=== PATIENT | male | born 1935 | race Caucasian/White ===

== ENCOUNTER 2016-10-24 15:40 | Inpatient (IN) ==
[2016-10-24] MEDS ORDERED: Ondansetron 4 MG/2 ML VIAL IVP ONE (16:00)
[2016-10-24] MEDS ORDERED: 0.9 % Sodium Chloride 1,000 ML IVC ONE (16:00)
[2016-10-24] MEDS ORDERED: *HR* Morphine 2 MG/ML SYRINGE IVP ONE (16:00)
[2016-10-24] MEDS ORDERED: Piperacillin/Tazobactam 4.5 GM in D5% in Water (Mini-Bag+) 100 ML IVPB ONE (16:04)
[2016-10-24 17:03] LABS: Basophils % 0.1 %; Eosinophils % 0.1 %; Hematocrit 35.2 % (37.5-50.1); Hemoglobin 11.8 g/dL (12.9-16.9); Immature Granulocytes % 0.8 % (0-4); Lymphocytes # 1.2 K/mcL (0.6-4.6); Lymphocytes % 7.9 %; Mean Corpuscular HGB Conc 33.5 g/dL (31.6-35.5); Mean Corpuscular Hemoglobin 31.8 pg (28.0-33.3); Mean Corpuscular Volume 94.9 fL (83.0-100.0); Mean Platelet Volume 9.1 fL (9.4-12.4); Monocytes # 0.6 K/mcL (0.0-1.3); Monocytes % 4.3 %; Neutrophils # 12.6 K/mcL (1.6-8.9); Platelet Count 181 K/mcL (140-400); Red Blood Count 3.71 M/mcL (4.19-5.50); Red Cell Distribution Width 13.4 % (11.5-14.5); Segmented Neutrophils % 86.8 %
[2016-10-24 17:11] LABS: INR 1.6; Prothrombin Time 17.4 Seconds (9.4-12.1)
[2016-10-24 17:19] LABS: Potassium 3.9 mEq/L (3.5-4.5)
[2016-10-24 17:20] LABS: Albumin 2.9 g/dL (3.5-5.0); Albumin/Globulin Ratio 0.9 (1.1-2.2); Bilirubin,Direct 0.7 mg/dL (0.0-0.5); Bilirubin,Indirect 0.3 mg/dL (0.0-1.2); Calcium 9.3 mg/dL (8.6-10.8); Globulin 3.4 g/dL (2.4-3.5); Total Protein 6.3 g/dL (6.0-8.3)
[2016-10-24 17:33] LABS: Bilirubin,Urine Large (Negative); Blood,Urine Negative (Negative); Clarity,Urine Cloudy (Clear); Color,Urine Dark Yellow (Yellow); Glucose,Urine (UA) 100 mg/dL (Normal); Ketones,Urine Trace mg/dL (Negative); Leukocyte Esterase,Urine Small (Negative); Nitrite,Urine Negative (Negative); PH,Urine 5.5 pH Units (5.0-8.0); Protein,Urine 100 mg/dL (Neg-Trace); Specific Gravity,Urine 1.017 (1.010-1.025); Urobilinogen,Urine Normal (Normal)
[2016-10-24 17:35] LABS: Squamous Epithelial Cell,Urine Many per lpf (None-Few)
[2016-10-24 17:51] LABS: Hyaline Casts,Urine Few per lpf (None-Few); Transitional Epi Cells,Urine Few per hpf (None-Few)
[2016-10-24 17:52] LABS: Bacteria,Urine Moderate per hpf (None-Few)
[2016-10-24] MEDS ORDERED: Ondansetron 4 MG/2 ML VIAL IVP PRN (20:08)
[2016-10-24] MEDS ORDERED: *HR* Dextrose 50 % in Water (Syg) 50 ML SYRINGE IVP PRN (20:14)
[2016-10-24] MEDS ORDERED: D5% in Water 1,000 ML IVC PRN (20:14)
[2016-10-24] MEDS ORDERED: Dextrose Gel 15 GM PO PRN ×2 (20:14)
[2016-10-24] MEDS: 0.9 % Sodium Chloride 1,000 ML IVC SCH (21:44)
[2016-10-24] MEDS: *HR* Morphine 2 MG/ML SYRINGE IVP PRN (23:15)
[2016-10-24] MEDS: cefOXitin 2,000 MG in D5% in Water (Mini-Bag+) 100 ML IVPB SCH (23:17)
--- NOTE | 2016-10-25 00:02 | Emergency Department Note ---
Disposition Clinical Impression: Acute cholecystitis Disposition: Admitted As Inpatient Condition: Good General Adult HPI - General Chief complaint: ED Abdominal Pain Stated complaint: sent from cancer or for admission Time Seen by Provider: 10/24/16 15:48 Source: patient, family Limitations: no limitations Nursing Notes Reviewed: Yes Vital Signs Reviewed: Yes - History of Present Illness HPI Narrative: 81-year-old male presents with concern for right upper quadrant abdominal pain. He was actually seen here over the weekend had a CT scan that showed questionable acute cholecystitis. He was sent home on antibiotics after surgical consultation and discussion. He had appropriate follow-up and ultimately returned with worsening pain, anorexia, upper quadrant abdominal pain. No fever or chills. Vital signs stable on arrival. He is currently on immunotherapy for lung cancer. Pain Scale: 5 - Related Data Home Medications Medication Instructions Recorded Confirmed Aspirin 81 mg PO DAILY 03/13/15 10/24/16 Docusate [Colace] 100 mg PO DAILY PRN 03/13/15 10/24/16 Lidocaine/Prilocaine CREAM [Emla] 1 appl TP PRN PRN 03/13/15 10/24/16 Cyanocobalamin (Vitamin B-12) 2,000 mcg PO DAILY 06/27/16 10/24/16 [Vitamin B12] Insulin ASPART [NovoLOG] 1 - 3 unit SQ TIDWM 10/15/16 10/24/16 Metformin [Glucophage] 500 mg PO BIDWM 10/24/16 10/24/16 PredniSONE 20 mg PO Q48H 10/24/16 10/24/16 Previous Rx's Medication Instructions Recorded Levothyroxine [Synthroid] 100 mcg PO QAM #30 tab 09/24/15 LORazepam [Ativan] 0.5 tab PO Q6H PRN #90 tablet 09/17/16 Ciprofloxacin HCl [Cipro] 500 mg PO BID #20 tablet 10/22/16 MetroNIDAZOLE [Flagyl] 500 mg PO QID #40 tablet 10/22/16 Allergies Allergy/AdvReac Type Severity Reaction Status Date / Time propoxyphene [From Darvon] Allergy See Verified 10/15/16 09:12 Comments All systems ED: reviewed and negative except as stated. Past Medical History - Past Medical History Medical history: Reports: cancer, diabetes, malignancy, thyroid disease Surgical history: Reports: colectomy, orthopedic, other (left shoulder arthroscopy) Psychiatric history: Reports: no psych history - Social History Smoking Status: Current some day smoker Smokeless Tobacco Status: No Alcohol use: Reports: none Drug use: Reports: none Physical Exam There is tenderness in the right upper quadrant with positive Cardenas sign. - General Limitations: no limitations General appearance: alert, in no apparent distress - Head Head exam: atraumatic - Eye Eye exam: Present: normal appearance - ENT ENT exam: normal exam, normal oropharynx - Neck Neck exam: Present: normal inspection, full ROM - Chest Chest inspection: Present: normal inspection - Respiratory Respiratory exam: Present: normal lung sounds bilaterally - Cardiovascular Cardiovascular exam: Present: regular rate, normal rhythm - Male exam: Present: normal inspection - Extremities Exam Extremities exam: Present: normal inspection, full ROM - Expanded Lower Extremity Exam Hip/Pelvis exam: Present: normal inspection, full ROM Upper leg exam: Present: normal inspection, full ROM Knee exam: Present: normal inspection, full ROM Lower leg exam: Present: normal inspection, full ROM Ankle exam: Present: normal inspection, full ROM Foot/toe exam: Present: normal inspection, full ROM Neurovascular/Tendon exam: Present: normal capillary refill, pulse deficit Gait: observed and normal - Back Exam Back exam: Present: normal inspection, full ROM - Neurological Exam Neurological exam: Present: alert, oriented X3, CN II-XII intact - Psychiatric Psychiatric exam: Present: normal affect, normal mood - Skin Skin exam: Present: warm, dry Course Vital Signs Temperature 97.7 F 10/24/16 15:41 Pulse Rate 94 10/24/16 15:41 Respiratory Rate 16 10/24/16 15:41 Blood Pressure 106/62 10/24/16 15:41 O2 Sat by Pulse Oximetry 98 10/24/16 15:41 Temperature 98.2 F 10/24/16 23:52 Pulse Rate 80 10/24/16 23:52 Respiratory Rate 17 10/24/16 23:52 Blood Pressure 108/66 10/24/16 23:52 O2 Sat by Pulse Oximetry 95 10/24/16 23:52 Oxygen Delivery Oxygen Delivery Room Air Medical Decision Making - MDM Narrative Medical decision making narrative: 81-year-old male with acute cholecystitis, Zosyn initiated, discussed case with on-call surgeon. Confirmed with ultrasound. We will keep nothing by mouth, admit to general surgery. accepting surgeon. Admitted in stable condition. - Medical Records Medical records reviewed: Yes I reviewed the patient's medical records. - Lab Data Lab results reviewed: Yes I reviewed the patient's lab results. Result diagrams: 10/24/16 16:56 10/24/16 16:56 Lab Results 10/24/16 10/24/16 10/24/16 Range/Units 16:56 16:56 16:56 WBC 14.6 H (4.3-11.1) K/mcL RBC 3.71 L (4.19-5.50) M/mcL Hgb 11.8 L (12.9-16.9) g/dL Hct 35.2 L (37.5-50.1) % MCV 94.9 (83.0-100.0) fL MCH 31.8 (28.0-33.3) pg MCHC 33.5 (31.6-35.5) g/dL RDW 13.4 (11.5-14.5) % Plt Count 181 (140-400) K/mcL MPV 9.1 L (9.4-12.4) fL Immature Gran % 0.8 (0-4) % Seg Neutrophils % 86.8 % Lymphocytes % 7.9 % Monocytes % 4.3 % Eosinophils % 0.1 % Basophils % 0.1 % Neutrophils # 12.6 H (1.6-8.9) K/mcL Lymphocytes # 1.2 (0.6-4.6) K/mcL Monocytes # 0.6 (0.0-1.3) K/mcL Eosinophils # 0.0 (0.0-0.6) K/mcL Basophils # 0.0 (0.0-0.2) K/mcL PT 17.4 H (9.4-12.1) Seconds INR 1.6 Sodium 131 L (136-145) mEq/L Potassium 3.9 (3.5-4.5) mEq/L Chloride 98 (98-109) mEq/L Carbon Dioxide 20 (19-29) mEq/L BUN 28 H D (8-26) mg/dL Creatinine 2.28 H D (0.72-1.25) mg/dL Est GFR ( Amer) 34 L (> 60) Est GFR (Non-Af Amer) 28 L (> 60) BUN/Creatinine Ratio 12 (6-26) Glucose 152 H (70-99) mg/dL Calculated Osmolality 280 (280-300) Lactic Acid (0.5-2.2) mmol/L Calcium 9.3 (8.6-10.8) mg/dL Total Bilirubin 1.0 (0.2-1.2) mg/dL Direct Bilirubin 0.7 H (0.0-0.5) mg/dL Indirect Bilirubin 0.3 (0.0-1.2) mg/dL AST 23 (5-34) Units/L ALT 23 (0-55) Units/L Alkaline Phosphatase 101 (38-126) Units/L Troponin I (0-0.03) ng/mL Serum Total Protein 6.3 (6.0-8.3) g/dL Albumin 2.9 L (3.5-5.0) g/dL Globulin 3.4 (2.4-3.5) g/dL Albumin/Globulin Ratio 0.9 L (1.1-2.2) Amylase 23 L (25-125) Units/L Lipase 5 L (8-78) Units/L Urine Color (Yellow) Urine Clarity (Clear) Urine pH (5.0-8.0) pH Units Ur Specific Ferdinand (1.010-1.025) Urine Protein (Neg-Trace) mg/dL Urine Glucose (UA) (Normal) mg/dL Urine Ketones (Negative) mg/dL Urine Blood (Negative) Urine Nitrite (Negative) Urine Bilirubin (Negative) Urine Urobilinogen (Normal) mg/dL Ur Leukocyte Esterase (Negative) Urine Microscopic RBC Urine Microscopic WBC (0-3) per hpf Ur Squamous Epith Cells (None-Few) per lpf Ur Transition Epith Cell (None-Few) per hpf Urine Bacteria (None-Few) per hpf Hyaline Casts (None-Few) per lpf Urine Yeast Ur Culture Indicated? (NO) 10/24/16 10/24/16 10/24/16 Range/Units 16:56 16:56 17:25 WBC (4.3-11.1) K/mcL RBC (4.19-5.50) M/mcL Hgb (12.9-16.9) g/dL Hct (37.5-50.1) % MCV (83.0-100.0) fL MCH (28.0-33.3) pg MCHC (31.6-35.5) g/dL RDW (11.5-14.5) % Plt Count (140-400) K/mcL MPV (9.4-12.4) fL Immature Gran % (0-4) % Seg Neutrophils % % Lymphocytes % % Monocytes % % Eosinophils % % Basophils % % Neutrophils # (1.6-8.9) K/mcL Lymphocytes # (0.6-4.6) K/mcL Monocytes # (0.0-1.3) K/mcL Eosinophils # (0.0-0.6) K/mcL Basophils # (0.0-0.2) K/mcL PT (9.4-12.1) Seconds INR Sodium (136-145) mEq/L Potassium (3.5-4.5) mEq/L Chloride (98-109) mEq/L Carbon Dioxide (19-29) mEq/L BUN (8-26) mg/dL Creatinine (0.72-1.25) mg/dL Est GFR ( Amer) (> 60) Est GFR (Non-Af Amer) (> 60) BUN/Creatinine Ratio (6-26) Glucose (70-99) mg/dL Calculated Osmolality (280-300) Lactic Acid 1.1 (0.5-2.2) mmol/L Calcium (8.6-10.8) mg/dL Total Bilirubin (0.2-1.2) mg/dL Direct Bilirubin (0.0-0.5) mg/dL Indirect Bilirubin (0.0-1.2) mg/dL AST (5-34) Units/L ALT (0-55) Units/L Alkaline Phosphatase (38-126) Units/L Troponin I 0.01 (0-0.03) ng/mL Serum Total Protein (6.0-8.3) g/dL Albumin (3.5-5.0) g/dL Globulin (2.4-3.5) g/dL Albumin/Globulin Ratio (1.1-2.2) Amylase (25-125) Units/L Lipase (8-78) Units/L Urine Color Dark Yellow (Yellow) Urine Clarity Cloudy A (Clear) Urine pH 5.5 (5.0-8.0) pH Units Ur Specific Ferdinand 1.017 (1.010-1.025) Urine Protein 100 H (Neg-Trace) mg/dL Urine Glucose (UA) 100 H (Normal) mg/dL Urine Ketones Trace H (Negative) mg/dL Urine Blood Negative (Negative) Urine Nitrite Negative (Negative) Urine Bilirubin Large H (Negative) Urine Urobilinogen Normal (Normal) mg/dL Ur Leukocyte Esterase Small H (Negative) Urine Microscopic RBC Test Not Performed Urine Microscopic WBC 5-15 H (0-3) per hpf Ur Squamous Epith Cells Many H (None-Few) per lpf Ur Transition Epith Cell Few (None-Few) per hpf Urine Bacteria Moderate H (None-Few) per hpf Hyaline Casts Few (None-Few) per lpf Urine Yeast Test Not Performed Ur Culture Indicated? YES A (NO)
[2016-10-25] MEDS: Insulin LISPRO 300 UNITS/3 ML VIAL SQ SCH ×4 (00:06→17:24)
[2016-10-25 04:03] LABS: Basophils % 0.1 %; Eosinophils % 0.3 %; Hematocrit 30.1 % (37.5-50.1); Immature Granulocytes % 0.5 % (0-4); Lymphocytes # 0.7 K/mcL (0.6-4.6); Lymphocytes % 7.3 %; Mean Corpuscular HGB Conc 33.9 g/dL (31.6-35.5); Mean Corpuscular Hemoglobin 32.5 pg (28.0-33.3); Mean Corpuscular Volume 95.9 fL (83.0-100.0); Mean Platelet Volume 9.4 fL (9.4-12.4); Monocytes # 0.6 K/mcL (0.0-1.3); Monocytes % 6.6 %; Neutrophils # 8.3 K/mcL (1.6-8.9); Platelet Count 169 K/mcL (140-400); Red Blood Count 3.14 M/mcL (4.19-5.50); Red Cell Distribution Width 13.6 % (11.5-14.5); Segmented Neutrophils % 85.2 %
[2016-10-25 04:07] LABS: INR 1.3; Prothrombin Time 13.7 Seconds (9.4-12.1)
[2016-10-25 04:11] LABS: Hemoglobin 10.2 g/dL (12.9-16.9)
[2016-10-25 04:17] LABS: Calcium 8.7 mg/dL (8.6-10.8); Potassium 3.5 mEq/L (3.5-4.5)
[2016-10-25] MEDS: *HR* Morphine 2 MG/ML SYRINGE IVP PRN ×4 (07:18→20:43)
[2016-10-25] MEDS: Pantoprazole 40 MG VIAL IVP SCH (07:18)
[2016-10-25] MEDS ORDERED: Naloxone 0.4 MG/ML INJ IVP PRN (09:51)
[2016-10-25 09:59] LABS: Albumin/Globulin Ratio 0.7 (1.1-2.2); Bilirubin,Direct 0.5 mg/dL (0.0-0.5); Bilirubin,Indirect 0.3 mg/dL (0.0-1.2); Bilirubin,Total 0.8 mg/dL (0.2-1.2); Globulin 3.1 g/dL (2.4-3.5); Total Protein 5.4 g/dL (6.0-8.3)
[2016-10-25 10:00] LABS: Albumin 2.3 g/dL (3.5-5.0)
[2016-10-25] MEDS ORDERED: 0.9 % Sodium Chloride 500 ML IVC ONE ×2 (10:18→14:31)
[2016-10-25] MEDS: 0.9 % Sodium Chloride 1,000 ML IVC SCH ×2 (10:58→23:48)
[2016-10-25] MEDS: cefOXitin 2,000 MG in D5% in Water (Mini-Bag+) 100 ML IVPB SCH ×2 (11:01→23:49)
[2016-10-25] MEDS ORDERED: *HR* LORazepam 0.5 MG TABLET PO PRN (14:15)
--- NOTE | 2016-10-25 14:21 | General Surg History&Physical ---
Date of Encounter: 10/25/16 Time of Encounter: 11:55 Assessment and Plan (1) CKD (chronic kidney disease) stage 3, GFR 30-59 ml/min Current Visit: No Status: Chronic The assessment and plan as outlined above was discussed with the patient and/or family members who expressed understanding and agreement. All questions were answered. pt has RAYRAY superimposed on his CKD due to dehydration, continue IVF, monitor UOP (2) Squamous cell carcinoma of lung, stage IV Current Visit: No Status: Chronic The assessment and plan as outlined above was discussed with the patient and/or family members who expressed understanding and agreement. All questions were answered. consulted oncology and discussed plan of care wean off steroids plan percut CCT and plan for cholecystectomy in 6-8 weeks if able Qualifiers: Laterality: left Qualified Code(s): C34.92 - Malignant neoplasm of unspecified part of left bronchus or lung (3) Anemia due to antineoplastic chemotherapy Current Visit: No Status: Chronic The assessment and plan as outlined above was discussed with the patient and/or family members who expressed understanding and agreement. All questions were answered. moniitor (4) Acute cholecystitis Current Visit: Yes Status: Acute The assessment and plan as outlined above was discussed with the patient and/or family members who expressed understanding and agreement. All questions were answered. discussed with patient and family will plan percutaneous cholecystostomy tube, continue Abx will wean off steroids in coming weeks will plan interval cholecystectomy in future (5) COPD (chronic obstructive pulmonary disease) Current Visit: No Status: Chronic The assessment and plan as outlined above was discussed with the patient and/or family members who expressed understanding and agreement. All questions were answered. Qualifiers: COPD type: emphysema Emphysema type: panlobular Qualified Code(s): J43.1 - Panlobular emphysema (6) Diabetes mellitus Current Visit: No Status: Chronic The assessment and plan as outlined above was discussed with the patient and/or family members who expressed understanding and agreement. All questions were answered. on clear diet currently MBS checks and SSI currently MBS slightly elevated at 160 and 188, will chagne to medium dose correction schedule Qualifiers: Diabetes mellitus type: type 2 Diabetes mellitus complication status: with kidney complications Diabetes mellitus complication detail: with chronic kidney disease Diabetes mellitus buttermaker insulin use: without buttermaker use Chronic kidney disease stage: stage 3 (moderate) Qualified Code(s): E11.22 - Type 2 diabetes mellitus with diabetic chronic kidney disease; N18.3 - Chronic kidney disease, stage 3 (moderate) (7) Hypothyroidism Current Visit: No Status: Chronic The assessment and plan as outlined above was discussed with the patient and/or family members who expressed understanding and agreement. All questions were answered. continue home po synthroid Qualifiers: Hypothyroidism type: unspecified Qualified Code(s): E03.9 - Hypothyroidism , unspecified History of Present Illness Chief complaint: RUQ abdominal pain HPI: Mr. Rodriguez is a 81 year old male who is being treated for metastatic left lung Squamous cell lung cancer. Patient was admitted in June with pancreatitis which was thought to caused by possibly his nivolumab or idiopathic, pt did have cholelithiasis but was felt to be a poor operative candidate. Pancreatitis resolved and Nivolumab was continued with q48hr prednisone since then. He comes in last night complaining of sharp RUQ pain without radiation that began this past Thursday (~5days ago). The day it started he had nausea and emesis. Denies diarrhea. He has stopped taking all his medication and not eating since essentially thursday. He is still having RUQ pain but no further nausea or emesis and the pain isnt as intense as it was. Past Med Surg Social Fam HX - Past Medical History Source: patient Medical history: cancer (squamous cell lung cancer, remote 20 yr ago history colon cancer), diabetes, malignancy, thyroid disease, other (history pancreatitis) Psychiatric history: no psych history - Past Surgical History Surgical History: colectomy (20 yrs ago), orthopedic, other (left shoulder arthroscopy) - Social History Smoking Status: Current some day smoker Smokeless Tobacco Status: No Alcohol use: none Drug use: none - Family History Father Family Member Ethnicity: Non- Living Status: Hx Family Cancer: Yes (unspecified) Mother Family Member Ethnicity: Non- Living Status: Hx Family Cancer: Yes (unspecified) Brother Family Member Ethnicity: Non- Living Status: Still Living Medications and Allergies Aspirin 81 mg PO DAILY 03/13/15 [History] Docusate [Colace] 100 mg PO DAILY PRN 03/13/15 [History] Lidocaine/Prilocaine CREAM [Emla] 1 appl TP PRN PRN 03/13/15 [History] Levothyroxine [Synthroid] 100 mcg PO QAM #30 tab 02/29/16 [Rx] Cyanocobalamin (Vitamin B-12) [Vitamin B12] 2,000 mcg PO DAILY 06/27/16 [History ] LORazepam [Ativan] 0.5 tab PO Q6H PRN #90 tablet 09/17/16 [Rx] Insulin ASPART [NovoLOG] 1 - 3 unit SQ TIDWM 10/15/16 [History] Ciprofloxacin HCl [Cipro] 500 mg PO BID #20 tablet 10/22/16 [Rx] MetroNIDAZOLE [Flagyl] 500 mg PO QID #40 tablet 10/22/16 [Rx] Metformin [Glucophage] 500 mg PO BIDWM 10/24/16 [History] PredniSONE 20 mg PO Q48H 10/24/16 [History] Allergies propoxyphene [From Darvon] Allergy (Verified 10/15/16 09:12) See Comments Review of Systems All systems PM: reviewed and no additional remarkable complaints except as stated All systems PM: A 10-system review of systems was performed and is negative for pertinent findings except as documented above in the HPI. General Surgery Exam Initial Vital Signs Temp Pulse Resp BP Pulse Ox 97.7 F 94 16 106/62 98 10/24/16 15:41 10/24/16 15:41 10/24/16 15:41 10/24/16 15:41 10/24/16 15:41 - General physical appearance well developed, well nourished, no distress - Eyes PERRL, normal ocular movement. negative: icteric - ENT normal mucosa - Neck trachea midline - Respiratory normal respiratory effort, clear to auscultation - Cardiovascular Cardiovascular exam: Present: RRR - Abdomen Abdomen general surgery: Present: bowel sounds present, soft, tender, surgical scars (lower midline). Absent: tympanic, guarding, rebound Abdominal Tenderness: Present: RUQ - Integumentary Integumentary general surgery: Present: warm and dry, no abnormal pigmentation. Absent: diaphoresis - Neurologic Present: CN 2-12 grossly intact - Musculoskeletal Present: normal posture - Psychiatric Psychiatric general surgery: Present: A&Ox3, speech is normal Results - Labs 10/25/16 03:25 10/25/16 03:25 Short CBC 10/25/16 10/24/16 Range/Units 03:25 16:56 WBC 9.7 14.6 H (4.3-11.1) K/mcL Hgb 10.2 L D 11.8 L (12.9-16.9) g/dL Hct 30.1 L 35.2 L (37.5-50.1) % Plt Count 169 181 (140-400) K/mcL Neutrophils # 8.3 12.6 H (1.6-8.9) K/mcL BMP 10/25/16 10/24/16 Range/Units 03:25 16:56 Sodium 136 131 L (136-145) mEq/L Potassium 3.5 3.9 (3.5-4.5) mEq/L Chloride 103 98 (98-109) mEq/L Carbon Dioxide 21 20 (19-29) mEq/L BUN 25 28 H D (8-26) mg/dL Creatinine 2.36 H 2.28 H D (0.72-1.25) mg/dL Glucose 96 152 H (70-99) mg/dL Calcium 8.7 9.3 (8.6-10.8) mg/dL Cardiac Enzymes 10/24/16 Range/Units 16:56 Troponin I 0.01 (0-0.03) ng/mL Liver Function 10/25/16 10/24/16 Range/Units 09:25 16:56 Total Bilirubin 0.8 1.0 (0.2-1.2) mg/dL Direct Bilirubin 0.5 0.7 H (0.0-0.5) mg/dL AST 28 23 (5-34) Units/L ALT 22 23 (0-55) Units/L Alkaline Phosphatase 159 H 101 (38-126) Units/L Albumin 2.3 L D 2.9 L (3.5-5.0) g/dL Urine 10/24/16 Range/Units 17:25 Urine Color Dark Yellow (Yellow) Urine Clarity Cloudy A (Clear) Urine pH 5.5 (5.0-8.0) pH Units Ur Specific [place] 1.017 (1.010-1.025) Urine Protein 100 H (Neg-Trace) mg/dL Urine Glucose (UA) 100 H (Normal) mg/dL Vital Signs Temp Pulse Resp BP Pulse Ox 10/25/16 11:35 97.8 F 77 18 114/66 97 10/25/16 07:24 96 10/25/16 07:08 98.6 F 76 18 134/56 96 10/25/16 04:24 98.4 F 82 17 119/66 94 10/24/16 23:52 98.2 F 80 17 108/66 95 10/24/16 19:33 98.2 F 84 19 119/65 97 10/24/16 18:40 16 111/65 10/24/16 18:32 95 18 111/65 96 10/24/16 15:41 97.7 F 94 16 106/62 98 Intake and Output 10/24/16 10/25/16 10/25/16 23:59 07:59 15:59 Intake Total 1200 / 1200 417 / 417 683 / 683 Output Total 325 / 325 300 / 300 150 / 150 Balance 875 / 875 117 / 117 533 / 533 Intake: IV Fluids 1200 / 1200 417 / 417 683 / 683 0.9 % Sodium Chloride 1, 1000 / 1000 417 / 417 583 / 583 000 ML @ 80 mls/hr IVC . [id number] DANIELE Rx#: [id number] Mefoxin 2,000 MG In 100 / 100 100 / 100 Dextrose 5% (Minibag+) 100 ML 100 ML @ 200 mls/ hr IVPB Q12H DANIELE Rx#: [id number] Zosyn 4.5 GM In Dextrose 100 / 100 5% (Minibag+) 100 ML 100 ML @ 100 mls/hr IVPB ONCE ONE Rx#:[id number] Oral 0 / 0 0 / 0 Output: Urine 325 / 325 300 / 300 150 / 150 Other: Meal NPO Weight 65.8 kg 67.8 kg Blood Glucose* 188 102 160 Patient Weight 10/25/16 23:59 Weight 67.8 kg - Imaging US - abdomen: report reviewed
[2016-10-25] MEDS: Cyanocobalamin (B-12) 1,000 MCG TABLET PO SCH (15:06)
[2016-10-25] MEDS: predniSONE 10 MG TABLET PO SCH (15:06)
[2016-10-25] MEDS: Levothyroxine 25 MCG TABLET PO SCH (15:06)
--- NOTE | 2016-10-25 16:48 | Oncology Inp Consult Note ---
Date of Encounter: 10/25/16 Time of Encounter: 16:46 Assessment and Plan (1) Acute cholecystitis Status: Acute Assessment and plan: He is on prednisone currently 10 mg every 48 hours. We will continue to taper it and may stop it in the near future. Given the findings is pancreatitis could be more related to gallstone/ cholecystitis rather than nivolumab. (2) Squamous cell carcinoma of lung, stage IV Status: Chronic Assessment and plan: He is responding well to nivolumab with marked reduction in the left neck lymph node by CT scan on August 2016 Last dose of nivolumab was on 10/15/2016. Nivolumab should not interfere with wound healing. His next dose scheduled for 10/29/2016 and may postpone it by a week Qualifiers: Laterality: left Qualified Code(s): C34.92 - Malignant neoplasm of unspecified part of left bronchus or lung (3) CKD (chronic kidney disease) stage 3, GFR 30-59 ml/min Status: Chronic Assessment and plan: cChronic kidney disease with creatinine around 1.7 with current creatinine 2.3. May be from dehydration. (4) Hypothyroidism Status: Chronic Assessment and plan: Hypothyroidism can be aggrevated by Nivolumab. TSH 9 on 10/15/16. Cortisol level normal at 6.2 that day Qualifiers: Hypothyroidism type: unspecified Qualified Code(s): E03.9 - Hypothyroidism , unspecified - Data of Consult Requesting Physician: Jessica Walden MD Primary Care Provider: Omari Tomas MD - Consult Narrative Reason for consult: Acute cholecystitis, metastatic lung cancer History of present illness: Mr. Rodriguez is a 81 year old male hospitalized with acute cholecystitis with gallstones. Currently on IV antibiotics cefoxitin 2 g every 12 hours Percutaneous cholecystostomy tube planned. She has been on steroids since June when he had pancreatitis. At that time was considered to be nivolumab induced. He also had gallstones on June 2016 CT abdomen and pelvis 10/22/2016 showed gallstones and thickened gallbladder. Enlarged prostate. GB ultrasound 10/24/2016 showed gallbladder wall thickening and pericholecystic fluid in addition to gallstones consistent with cholecystitis He may be a candidate for cholecystectomy in the near future in 6 weeks to 8 weeks Oncological history Squamous cell lung cancer stage IV diagnosis October [address]: -11/09/14 5.6 cm left upper lobe mass contiguous with the left hilum with extensive neck, bilateral hilar mediastinal lymphadenopathy including the 2.4 cm left supraclavicular lymph node. Biopsy of left upper lobe mass 11/09/14 confirmed squamous cell carcinoma. PET/CT 11/15/14 confirmed hypermetabolic activity in areas of previously noted CT abnormality. Hypermetabolic activity was also noted in the supraclavicular and posterior cervical lymph nodes indicating an M1 disease. Brain MRI 11/17/14 was negative for obvious intracranial metastasis. There was an indeterminate, subcentimeter focus of enhancement. Close follow-up is recommended. PFT showed an FEV1 of 2.56 L (83% predicted). He received 4 cycles of carboplatin every 4 weeks plus Abraxane weekly for 3 out of every 4 weeks from 11/24-02/16/15. Treatment was stopped due to suboptimal response and increasing intolerance. He was developing progressive left shoulder radicular pain felt to be related to bulky supraclavicular and received palliative radiation per Dr. Bueno from 02/26-. He started Nivolumab every 2 weeks on 03/16/15. After completing more than 6 months of treatment with stable to improved disease status, we decided to increase frequency between Nivolumab doses to every 3 weeks. On 05/20/16, we decided to get a treatment break after completing more than one year of treatment with good disease control. Resumed Nivolumab every 2 weeks on 08/06/16 because of disease progression with about 3 cm left supraclavicular lymphadenopathy CT neck, chest, abdomen and pelvis 09/10/16 was compatible with treatment response including improvement in left supraclavicular lymphadenopathy. Medical problems On 06/27/16, he was hospitalized for acute pancreatitis attributed to Nivolumab. Had a good response to steroids. Symptoms resolved. Pancreatic enzymes improved. He was evaluated by surgery for cholelithiasis and the recommended non- operative management. pancreatic enzymes on 09/03/16: Amylase 173. Was as high as 1800 last June. Lipase 125. Was as high as 1400 last June. Past Med Surg Social Fam HX - Past Medical History Medical history: cancer (squamous cell lung cancer, remote 20 yr ago history colon cancer), diabetes, malignancy, thyroid disease, other (history pancreatitis) Psychiatric history: no psych history - Past Surgical History Surgical History: colectomy (20 yrs ago), orthopedic, other (left shoulder arthroscopy) - Social History Smoking Status: Current some day smoker Smokeless Tobacco Status: No Alcohol use: none Drug use: none - Family History Father Family Member Ethnicity: Non- Living Status: Hx Family Cancer: Yes (unspecified) Mother Family Member Ethnicity: Non- Living Status: Hx Family Cancer: Yes (unspecified) Brother Family Member Ethnicity: Non- Living Status: Still Living Medications and Allergies Aspirin 81 mg PO DAILY 03/13/15 [History] Docusate [Colace] 100 mg PO DAILY PRN 03/13/15 [History] Lidocaine/Prilocaine CREAM [Emla] 1 appl TP PRN PRN 03/13/15 [History] Levothyroxine [Synthroid] 100 mcg PO QAM #30 tab 09/24/15 [Rx] Cyanocobalamin (Vitamin B-12) [Vitamin B12] 2,000 mcg PO DAILY 06/27/16 [History ] LORazepam [Ativan] 0.5 tab PO Q6H PRN #90 tablet 09/17/16 [Rx] Insulin ASPART [NovoLOG] 1 - 3 unit SQ TIDWM 10/15/16 [History] Ciprofloxacin HCl [Cipro] 500 mg PO BID #20 tablet 10/22/16 [Rx] MetroNIDAZOLE [Flagyl] 500 mg PO QID #40 tablet 10/22/16 [Rx] Metformin [Glucophage] 500 mg PO BIDWM 10/24/16 [History] PredniSONE 20 mg PO Q48H 10/24/16 [History] Allergies propoxyphene [From Darvon] Allergy (Verified 10/15/16 09:12) See Comments Review of systems: No fever chills. Right upper quadrant tenderness the main complaint. Also nausea Oncology - Exam - Constitutional Vitals: Temp Pulse Resp BP Pulse Ox 98.2 F 83 18 124/82 95 10/25/16 15:41 10/25/16 15:41 10/25/16 15:41 10/25/16 15:41 10/25/16 15:41 Exam: GENERAL: Alert and oriented, well appearing. Mental Status: Affect appropriate for circumstances HEENT: Sclerae anicteric. No mucositis or thrush. No other oral or pharyngeal lesions or erythema. Skin: No rashes or petechiae. No evidence of skin malignancy Lymph nodes: No cervical, supraclavicular, axillary, or inguinal adenopathy. Lungs: Clear to auscultation and percussion bilaterally. No wheezes or rhonchi Cardiovascular: Regular rate and rhythm. No gallops, murmurs, or rubs. Abdomen: Soft,RUQ tendernessr; no organomegaly or masses palpable. Extremities:No edema. No calf swelling or tenderness. No joint deformity. Neurologic: Alert, cranial nerves II-XII intact; normal gait; no focal weakness or sensory abnormalities. Oncology - Results - Labs Labs: Short CBC 10/25/16 Range/Units 03:25 WBC 9.7 (4.3-11.1) K/mcL Hgb 10.2 L D (12.9-16.9) g/dL Hct 30.1 L (37.5-50.1) % Plt Count 169 (140-400) K/mcL Neutrophils # 8.3 (1.6-8.9) K/mcL BMP 10/25/16 03:25 Sodium 136 Potassium 3.5 Chloride 103 Carbon Dioxide 21 BUN 25 Creatinine 2.36 H Glucose 96 Calcium 8.7 Liver Function 10/25/16 Range/Units 09:25 Total Bilirubin 0.8 (0.2-1.2) mg/dL Direct Bilirubin 0.5 (0.0-0.5) mg/dL AST 28 (5-34) Units/L ALT 22 (0-55) Units/L Alkaline Phosphatase 159 H (38-126) Units/L Albumin 2.3 L D (3.5-5.0) g/dL Consult Discharge Plan - Plan Referrals: Omari Tomas MD [Primary Care Provider] -
[2016-10-26] MEDS: Insulin LISPRO 300 UNITS/3 ML VIAL SQ SCH ×4 (00:47→17:14)
[2016-10-26] MEDS: *HR* Morphine 2 MG/ML SYRINGE IVP PRN ×2 (03:58→20:59)
[2016-10-26] MEDS: 0.9 % Sodium Chloride 1,000 ML IVC SCH (09:39)
[2016-10-26] MEDS: Levothyroxine 25 MCG TABLET PO SCH (09:41)
[2016-10-26] MEDS: Pantoprazole 40 MG VIAL IVP SCH (09:41)
[2016-10-26] MEDS: Cyanocobalamin (B-12) 1,000 MCG TABLET PO SCH (09:41)
[2016-10-26 10:09] LABS: Basophils % 0.2 %; Eosinophils % 0.3 %; Hematocrit 26.6 % (37.5-50.1); Hemoglobin 8.7 g/dL (12.9-16.9); Immature Granulocytes % 0.3 % (0-4); Immature Platelets 1.8 % (1.1-6.1); Lymphocytes # 0.7 K/mcL (0.6-4.6); Lymphocytes % 10.9 %; Mean Corpuscular HGB Conc 32.7 g/dL (31.6-35.5); Mean Corpuscular Hemoglobin 32.1 pg (28.0-33.3); Mean Corpuscular Volume 98.2 fL (83.0-100.0); Mean Platelet Volume 9.2 fL (9.4-12.4); Monocytes # 0.4 K/mcL (0.0-1.3); Monocytes % 6.4 %; Neutrophils # 5.1 K/mcL (1.6-8.9); Platelet Count 179 K/mcL (140-400); Red Blood Count 2.71 M/mcL (4.19-5.50); Red Cell Distribution Width 13.5 % (11.5-14.5); Segmented Neutrophils % 81.9 %
[2016-10-26 10:23] LABS: Albumin 2.1 g/dL (3.5-5.0); Albumin/Globulin Ratio 0.7 (1.1-2.2); Bilirubin,Direct 0.3 mg/dL (0.0-0.5); Bilirubin,Indirect 0.3 mg/dL (0.0-1.2); Bilirubin,Total 0.6 mg/dL (0.2-1.2); Calcium 8.2 mg/dL (8.6-10.8); Globulin 2.9 g/dL (2.4-3.5); Potassium 3.6 mEq/L (3.5-4.5)
[2016-10-26] MEDS: cefOXitin 2,000 MG in D5% in Water (Mini-Bag+) 100 ML IVPB SCH (11:15)
[2016-10-26] MEDS ORDERED: *HR* Midazolam HCl 2 MG/2 ML VIAL IV PRN (12:14)
[2016-10-26] MEDS: *HR* FentaNYL (PF) 100 MCG/2 ML VIAL IV PRN ×2 (12:44→12:53)
--- NOTE | 2016-10-26 12:57 | IR Procedure Note ---
Date of procedure: 10/26/16 Consent Obtained: Written consent Timeout: Correct patient and procedure verified, Correct site verified, Time out performed, Skin prep completed Local anesthetic: Lidocaine 1% Indications: Acute cholecystitis, abdominal pain Procedure Performed: Cholecystostomy tube placement Site/Technique: Ct guided tube placement given colonic interposition Results/Findings: Normal appearing bile, no purulence seen. 10fr drain placed. Estimated blood loss (cc): 1 Complications: None; Tolerated procedure well Post Procedure Treatment Plan: Monitoring in pts room
--- NOTE | 2016-10-26 13:48 | Electrocardiograph Report ---
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
--- NOTE | 2016-10-26 13:49 | Electrocardiograph Report ---
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
[2016-10-26] MEDS ORDERED: *HR* HYDROcodone/Acet 5/325 mg TABLET PO PRN (14:18)
--- NOTE | 2016-10-26 14:23 | General Surgery Progress Note ---
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 Visit: No Status: Chronic (4) Acute cholecystitis Current Visit: Yes Status: Acute percutaneous cholecystotomy tube placed today patient feels a little better continue abx ok ada diet dc planning drain care teaching (5) COPD (chronic obstructive pulmonary disease) Current Visit: No Status: Chronic Qualifiers: COPD type: emphysema Emphysema type: panlobular Qualified Code(s): J43.1 - Panlobular emphysema (6) Diabetes mellitus Current Visit: No Status: Chronic ADA diet start metformin continue SSI Qualifiers: Diabetes mellitus type: type 2 Diabetes mellitus complication status: with kidney complications Diabetes mellitus complication detail: with chronic kidney disease Diabetes mellitus terminal gauger supervisor insulin use: without long-term use Chronic kidney disease stage: stage 3 (moderate) Qualified Code(s): E11.22 - Type 2 diabetes mellitus with diabetic chronic kidney disease; N18.3 - Chronic kidney disease, stage 3 (moderate) (7) Hypothyroidism Current Visit: No Status: Chronic continue synthroid Qualifiers: Hypothyroidism type: unspecified Qualified Code(s): E03.9 - Hypothyroidism , unspecified Subjective Patient reports: no new complaints, feels better, still having pain, pain is less, tolerating liquids well Objective Vital Signs - Last 8 Hours Temp Pulse Resp BP Pulse Ox 10/26/16 13:15 97.4 F L 67 15 130/72 97 10/26/16 12:51 69 26 153/78 99 10/26/16 12:45 66 22 144/72 100 10/26/16 12:41 73 24 148/70 99 10/26/16 10:54 97.6 F 70 18 137/76 98 10/26/16 07:48 95 10/26/16 07:06 97.7 F 70 18 138/78 95 Intake and Output 10/25/16 10/26/16 10/26/16 23:59 07:59 15:59 Intake Total 360 / 360 100 / 100 1548 / 1548 Output Total 230 / 230 700 / 700 120 / 120 Balance 130 / 130 -600 / -600 1428 / 1428 Intake: IV Fluids 100 / 100 1548 / 1548 0.9 % Sodium Chloride 1, 1448 / 1448 000 ML @ 110 mls/hr IVC . Q9H6M [facility] Rx#:[id number] Mefoxin 2,000 MG In 100 / 100 100 / 100 Dextrose 5% (Minibag+) 100 ML 100 ML @ 200 mls/ hr IVPB Q12H [facility] Rx#: [id number] Oral 360 / 360 0 / 0 0 / 0 Output: Urine 230 / 230 700 / 700 0 / 0 Wound Drainage 120 / 120 Right Abdomen 120 / 120 Other: Meal Dinner Weight 66.8 kg Blood Glucose* 204 109 112 Patient Weight 10/26/16 23:59 Weight 66.8 kg - General physical appearance well developed, well nourished, no distress - Eyes PERRL, normal ocular movement - ENT normal mucosa, normocephalic - Neck Neck exam: trachea midline - Respiratory normal expansion, clear to auscultation - Cardiovascular Cardiovascular exam: Present: RRR - Abdomen Abdomen: Present: bowel sounds present, soft, tender. Absent: guarding, rebound Abdominal Tenderness: RUQ (mild) - Integumentary no rash, no growths - Neurologic CN 2-12 grossly intact - Musculoskeletal normal gait, normal posture - Psychiatric oriented to time, memory intact - Labs 10/26/16 09:41 10/26/16 09:41 Vital Signs Temp Pulse Resp BP Pulse Ox 10/26/16 13:15 97.4 F L 67 15 130/72 97 10/26/16 12:51 69 26 153/78 99 10/26/16 12:45 66 22 144/72 100 10/26/16 12:41 73 24 148/70 99 10/26/16 10:54 97.6 F 70 18 137/76 98 10/26/16 07:48 95 10/26/16 07:06 97.7 F 70 18 138/78 95 10/26/16 05:07 97.7 F 64 16 119/70 95 10/26/16 00:26 97.7 F 72 16 134/74 95 10/25/16 19:39 98.4 F 75 18 134/78 94 10/25/16 15:41 98.2 F 83 18 124/82 95 Intake and Output 10/25/16 10/26/16 10/26/16 23:59 07:59 15:59 Intake Total 360 / 360 100 / 100 1548 / 1548 Output Total 230 / 230 700 / 700 120 / 120 Balance 130 / 130 -600 / -600 1428 / 1428 Intake: IV Fluids 100 / 100 1548 / 1548 0.9 % Sodium Chloride 1, 1448 / 1448 000 ML @ 110 mls/hr IVC . Q9H6M [facility] Rx#:[id number] Mefoxin 2,000 MG In 100 / 100 100 / 100 Dextrose 5% (Minibag+) 100 ML 100 ML @ 200 mls/ hr IVPB Q12H [facility] Rx#: [id number] Oral 360 / 360 0 / 0 0 / 0 Output: Urine 230 / 230 700 / 700 0 / 0 Wound Drainage 120 / 120 Right Abdomen 120 / 120 Other: Meal Dinner Weight 66.8 kg Blood Glucose* 204 109 112 Patient Weight 10/26/16 23:59 Weight 66.8 kg Short CBC 10/26/16 Range/Units 09:41 WBC 6.3 (4.3-11.1) K/mcL Hgb 8.7 L D (12.9-16.9) g/dL Hct 26.6 L (37.5-50.1) % Plt Count 179 (140-400) K/mcL Neutrophils # 5.1 (1.6-8.9) K/mcL BMP 10/26/16 Range/Units 09:41 Sodium 139 (136-145) mEq/L Potassium 3.6 (3.5-4.5) mEq/L Chloride 109 (98-109) mEq/L Carbon Dioxide 19 (19-29) mEq/L BUN 17 (8-26) mg/dL Creatinine 1.61 H (0.72-1.25) mg/dL Glucose 108 H (70-99) mg/dL Calcium 8.2 L (8.6-10.8) mg/dL Liver Function 10/26/16 Range/Units 09:41 Total Bilirubin 0.6 (0.2-1.2) mg/dL Direct Bilirubin 0.3 (0.0-0.5) mg/dL AST 21 (5-34) Units/L ALT 18 (0-55) Units/L Alkaline Phosphatase 188 H (38-126) Units/L Albumin 2.1 L (3.5-5.0) g/dL Consult Discharge Plan - Plan Referrals: Omari oTmas MD [Primary Care Provider] -
[2016-10-26] MEDS ORDERED: *HR* Metformin 500 MG TABLET PO SCH ×2 (17:00)
[2016-10-27] MEDS: Insulin LISPRO 300 UNITS/3 ML VIAL SQ SCH ×3 (00:57→13:58)
[2016-10-27] MEDS: cefOXitin 2,000 MG in D5% in Water (Mini-Bag+) 100 ML IVPB SCH ×2 (00:58→13:54)
[2016-10-27] MEDS: *HR* Morphine 2 MG/ML SYRINGE IVP PRN ×2 (03:47→09:46)
[2016-10-27 03:58] LABS: Basophils % 0.2 %; Eosinophils # 0.1 K/mcL (0.0-0.6); Hematocrit 28.2 % (37.5-50.1); Hemoglobin 9.5 g/dL (12.9-16.9); Immature Granulocytes % 0.4 % (0-4); Lymphocytes # 1.1 K/mcL (0.6-4.6); Lymphocytes % 20.6 %; Mean Corpuscular HGB Conc 33.7 g/dL (31.6-35.5); Mean Corpuscular Hemoglobin 32.2 pg (28.0-33.3); Mean Corpuscular Volume 95.6 fL (83.0-100.0); Monocytes # 0.5 K/mcL (0.0-1.3); Monocytes % 8.8 %; Neutrophils # 3.6 K/mcL (1.6-8.9); Platelet Count 172 K/mcL (140-400); Red Blood Count 2.95 M/mcL (4.19-5.50); Red Cell Distribution Width 13.2 % (11.5-14.5)
[2016-10-27 04:17] LABS: Albumin/Globulin Ratio 0.7 (1.1-2.2); Bilirubin,Direct 0.3 mg/dL (0.0-0.5); Bilirubin,Indirect 0.2 mg/dL (0.0-1.2); Bilirubin,Total 0.5 mg/dL (0.2-1.2); Calcium 8.5 mg/dL (8.6-10.8); Potassium 3.7 mEq/L (3.5-4.5)
[2016-10-27] MEDS: Levothyroxine 25 MCG TABLET PO SCH (08:32)
[2016-10-27] MEDS: Pantoprazole 40 MG VIAL IVP SCH (08:32)
[2016-10-27] MEDS: Cyanocobalamin (B-12) 1,000 MCG TABLET PO SCH (08:32)
[2016-10-27 11:18] VITALS: BP 138/81
[2016-10-27] MEDS: predniSONE 10 MG TABLET PO SCH (14:09)
--- NOTE | 2016-10-27 14:21 | Discharge Summary ---
Date of Encounter: 10/27/16 Time of Encounter: 14:20 - Discharge Diagnosis (1) Acute cholecystitis Priority: Primary Status: Acute (2) CKD (chronic kidney disease) stage 3, GFR 30-59 ml/min Priority: Secondary Status: Chronic (3) COPD (chronic obstructive pulmonary disease) Priority: Secondary Status: Chronic Qualifiers: COPD type: emphysema Emphysema type: panlobular Qualified Code(s): J43.1 - Panlobular emphysema (4) Diabetes mellitus Priority: Secondary Status: Chronic Qualifiers: Diabetes mellitus type: type 2 Diabetes mellitus complication status: with kidney complications Diabetes mellitus complication detail: with chronic kidney disease Diabetes mellitus exterminator termite insulin use: without exterminator termite use Chronic kidney disease stage: stage 3 (moderate) Qualified Code(s): E11.22 - Type 2 diabetes mellitus with diabetic chronic kidney disease; N18.3 - Chronic kidney disease, stage 3 (moderate) (5) Hyperlipidemia Priority: Secondary Status: Chronic Qualifiers: Hyperlipidemia type: unspecified Qualified Code(s): E78.5 - Hyperlipidemia , unspecified (6) Hypothyroidism Priority: Secondary Status: Chronic Qualifiers: Hypothyroidism type: unspecified Qualified Code(s): E03.9 - Hypothyroidism , unspecified (7) Squamous cell carcinoma of lung, stage IV Priority: Secondary Status: Chronic Qualifiers: Laterality: left Qualified Code(s): C34.92 - Malignant neoplasm of unspecified part of left bronchus or lung - Discharge Medications Prescriptions: OxyCODONE/APAP 5/325 [Percocet 5/325 MG] 1 each PO Q6HR PRN #30 tablet PRN Reason: Pain Ciprofloxacin HCl [Cipro] 500 mg PO BID #20 tablet Docusate [Colace] 100 mg PO BID #60 capsule MetroNIDAZOLE [Flagyl] 500 mg PO TID #30 tablet Home Medications: Aspirin 81 mg PO DAILY 03/13/15 [History] Docusate [Colace] 100 mg PO DAILY PRN 03/13/15 [History] Lidocaine/Prilocaine CREAM [Emla] 1 appl TP PRN PRN 03/13/15 [History] Levothyroxine [Synthroid] 100 mcg PO QAM #30 tab 09/24/15 [Rx] Cyanocobalamin (Vitamin B-12) [Vitamin B12] 2,000 mcg PO DAILY 06/27/16 [History ] LORazepam [Ativan] 0.5 tab PO Q6H PRN #90 tablet 09/17/16 [Rx] Insulin ASPART [NovoLOG] 1 - 3 unit SQ TIDWM 10/15/16 [History] Metformin [Glucophage] 500 mg PO BIDWM 10/24/16 [History] PredniSONE 20 mg PO Q48H 10/24/16 [History] Ciprofloxacin HCl [Cipro] 500 mg PO BID #20 tablet 10/27/16 [Rx] Docusate [Colace] 100 mg PO BID #60 capsule 10/27/16 [Rx] MetroNIDAZOLE [Flagyl] 500 mg PO TID #30 tablet 10/27/16 [Rx] OxyCODONE/APAP 5/325 [Percocet 5/325 MG] 1 each PO Q6HR PRN #30 tablet 10/27/16 [Rx] Allergies/Adverse Reactions: Allergies propoxyphene [From Darvon] Allergy (Verified 10/15/16 09:12) See Comments General Surgery Exam Initial Vital Signs Temp Pulse Resp BP Pulse Ox 97.7 F 94 16 106/62 98 10/24/16 15:41 10/24/16 15:41 10/24/16 15:41 10/24/16 15:41 10/24/16 15:41 - General physical appearance well developed, well nourished, no distress - Eyes normal ocular movement - ENT normal mucosa, atraumatic, normocephalic - Neck trachea midline - Respiratory normal respiratory effort, clear to auscultation - Cardiovascular Cardiovascular exam: Present: RRR, 15, 16 - Abdomen Abdomen general surgery: Present: bowel sounds present, soft, tender, wound ( Pigtail drain with bilious drainage noted) Abdominal Tenderness: Present: RUQ - Incision Incision: Present: clean and dry, intact - Integumentary Integumentary general surgery: Present: warm and dry - Neurologic Present: CN 2-12 grossly intact - Psychiatric Psychiatric general surgery: Present: appropriate, oriented to person, oriented to place, oriented to time, speech is normal, memory intact Date of admission: 10/26/16 17:25 Primary care physician: Omari Tomas MD [facility] Anticipated date of discharge: 10/27/16 - Patient Status Disposition: Home, Self-Care Condition: Good Functional capacity at discharge: independent ambulation Overall status at discharge: patient is progressing back to baseline - Discharge Instructions Follow Up With: Omari Tomas MD [Primary Care Provider] - Jessica Walden MD [Partnered Physician] - 11/05/16 1:50 pm (Hospital follow- up) Forms: ED Satisfaction Letter, Work/School Release Additional Instructions: May shower, no tub bath Wash around drain with soap and water and pat dry daily Empty drain 3 times per day and as needed if full (record output and bring to follow-up appointment on 11/05/[address] Walden) - Diet and Activity Activity: increase activity as tolerated Diet: low fat, low cholesterol - Hospital Course Hospital course: Mr. Rodriguez is a 81 year old male presented to the hospital with acute cholecystitis. He has been treated conservatively with IV antibiotics and IR placement of a cholecystostomy tube. He was treated conservatively due to steroid treatments per oncology team. He is feeling much better after drain placement. He is tolerating a diet without nausea/vomiting. Vitals are stable and he is afebrile. We will begin discharge planning to home on oral antibiotics for the next 10 days. Continue pigtail drain and teaching complet. Will plan for interval cholecystectomy in the next 6-[address] Walden. - Time Spent with Patient Total time spent providing and/or coordinating discharge services: Less than 30 minutes Labs on day of discharge: Labs from last 24 hours 10/27/16 10/27/16 10/27/16 11:24 07:42 03:30 WBC RBC Hgb Hct MCV MCH MCHC RDW Plt Count MPV Immature Gran % Seg Neutrophils % Lymphocytes % Monocytes % Eosinophils % Basophils % Neutrophils # Lymphocytes # Monocytes # Eosinophils # Basophils # Sodium 137 Potassium 3.7 Chloride 106 Carbon Dioxide 22 BUN 17 Creatinine 1.92 H Est GFR ( Amer) 41 L Est GFR (Non-Af Amer) 34 L BUN/Creatinine Ratio 9 Glucose 100 H POC Glucose 189 H 122 H Calculated Osmolality 286 Calcium 8.5 L Total Bilirubin 0.5 Direct Bilirubin 0.3 Indirect Bilirubin 0.2 AST 19 ALT 17 Alkaline Phosphatase 176 H Serum Total Protein 5.0 L Albumin 2.0 L Globulin 3.0 Albumin/Globulin Ratio 0.7 L 10/27/16 10/27/16 10/26/16 03:30 00:35 19:59 WBC 5.2 RBC 2.95 L Hgb 9.5 L Hct 28.2 L MCV 95.6 MCH 32.2 MCHC 33.7 RDW 13.2 Plt Count 172 MPV 9.0 L Immature Gran % 0.4 Seg Neutrophils % 69.0 Lymphocytes % 20.6 Monocytes % 8.8 Eosinophils % 1.0 Basophils % 0.2 Neutrophils # 3.6 Lymphocytes # 1.1 Monocytes # 0.5 Eosinophils # 0.1 Basophils # 0.0 Sodium Potassium Chloride Carbon Dioxide BUN Creatinine Est GFR ( Amer) Est GFR (Non-Af Amer) BUN/Creatinine Ratio Glucose POC Glucose 152 H 190 H Calculated Osmolality Calcium Total Bilirubin Direct Bilirubin Indirect Bilirubin AST ALT Alkaline Phosphatase Serum Total Protein Albumin Globulin Albumin/Globulin Ratio - Attending Attestation I examined this patient and my medical decision-making was reviewed with the INDUSTRIAL RENDERER/PA/Advanced Practice Nurse/Resident Physician. I agree with the documented findings, disposition and treatment plan as described except to the extent set forth below.
== END 2016-10-27 15:05 | disposition home or self-care (01) | DRG 445 ==
LOC: 3ANU 15:40 → EMEROO 15:40 → 3ANU 19:03
PROVIDERS: ADMIT Surgery; ATTEND Surgery

== ENCOUNTER 2016-12-01 10:19 | Inpatient (IN) ==
[2016-12-01] MEDS ORDERED: cefOXitin 2,000 MG in D5% in Water (Mini-Bag+) 100 ML IVPB ONE (10:37)
[2016-12-01] MEDS ORDERED: Albuterol 2.5 MG/3 ML NEBULIZER IH ONE (10:45)
[2016-12-01] MEDS ORDERED: Albuterol 2.5 MG/3 ML NEBULIZER ONE (10:47)
[2016-12-01] MEDS ORDERED: Dexamethasone 4 MG/ML VIAL ONE (10:51)
[2016-12-01] MEDS ORDERED: *HR* Succinylcholine 200 MG/10 ML VIAL IVP ONE (10:51)
[2016-12-01] MEDS ORDERED: *HR* FentaNYL (PF) 100 MCG/2 ML VIAL ONE (10:51)
[2016-12-01] MEDS ORDERED: *HR* Propofol 200 MG/20 ML VIAL IVP ONE (10:51)
[2016-12-01] MEDS ORDERED: Ondansetron 4 MG/2 ML VIAL ONE (10:51)
[2016-12-01] MEDS ORDERED: Lidocaine -MPF 2% 2 ML VIAL ONE (10:51)
[2016-12-01] MEDS: 0.9 % Sodium Chloride 500 ML IVC SCH ×2 (10:59→13:32)
--- NOTE | 2016-12-01 11:08 | Anesthesia Evaluation PreOp ---
Date of Encounter: 12/01/16 Time of Encounter: 11:06 - Past History Planned Operation: Lap cholecystectomy Cardiac History: Denies any Significant Hx Pulmonary History: Smoker, Pack/yr (>50) NUTRITION INTERNSHIP History: Denies Any Significant HX Other Medical History: Renal (insufficiency), Diabetes Type II, Thyroid ( hypothyroid) Anesthesia History: No Prior Anesthetic Complications, Past Anesthesia (L shoulder scope, colectomy, angiogram) Alcohol Use: none Drug use: none Medications and Allergies Aspirin 81 mg PO DAILY 03/13/15 [History] Lidocaine/Prilocaine CREAM [Emla] 1 appl TP PRN PRN 03/13/15 [History] Cyanocobalamin (Vitamin B-12) [Vitamin B12] 2,000 mcg PO DAILY 06/27/16 [History ] Insulin ASPART [NovoLOG] 1 - 3 unit SQ TIDWM 10/15/16 [History] Metformin [Glucophage] 500 mg PO BIDWM 10/24/16 [History] Levothyroxine [Synthroid] 100 mcg PO 0630 11/05/16 [History] LORazepam [Ativan] 0.5 mg PO Q6H PRN #90 tablet 11/27/16 [Rx] Megestrol Acetate [Megace] 10 ml PO DAILY #300 mls 11/27/16 [Rx] Allergies propoxyphene [From Darvon] Allergy (Verified 11/05/16 12:26) See Comments - Meds/Allergy Pre-op Review Medications Reviewed: Yes Allergies Reviewed: Yes Beta Blockers on Current Med List: No Anesthesia Results - Labs Laboratory Tests 02/05/16 10/27/16 11/05/16 11:21 11:24 11:20 WBC Hgb Hct Plt Count PT INR APTT Sodium Potassium Chloride Carbon Dioxide BUN POC Creatinine 1.60 H Creatinine Glucose POC Glucose 189 H Est Mean Plasma Glucose 163 Hemoglobin A1c 7.3 H 11/27/16 11/27/16 11/27/16 13:05 13:05 13:06 WBC 7.1 Hgb 11.5 L Hct 33.7 L Plt Count 226 PT 11.3 INR 1.0 APTT 30.0 Sodium 139 Potassium 4.2 Chloride 103 Carbon Dioxide 24 BUN 14 POC Creatinine Creatinine 1.52 H Glucose 132 H POC Glucose Est Mean Plasma Glucose Hemoglobin A1c - Imaging EKG: report reviewed (10/26/16 SR with marked sinus arrhythmia, inferior OR probably old) Anesthesia Exam O2 Sat Height 1.8 m Height 1.8 m Height 1.8 m Weight 68.946 kg Weight 68.946 kg Weight 68.946 kg O2 Sat by Pulse Oximetry 94 O2 Sat by Pulse Oximetry 94 Vital Signs Resp Pulse Ox 18 94 12/01/16 10:45 12/01/16 10:45 Blood glucose: 155 Height: 1.8m - HEENT Pupil (Motor): Pupils equal, EOMI Mallampati: II Teeth: Edentulous Oral Opening: Greater than 3 - NUTRITION INTERNSHIP LOC: Oriented NUTRITION INTERNSHIP Motor: Normal RUE, Normal LUE, Normal RLE, Normal LLE, Normal Face NUTRITION INTERNSHIP Sensory: Normal: RUE, LUE, RLE, LLE, Face - Cardiac Rhythm: Regular - Pulmonary Breath Sounds: bilateral Clear Respiratory Effort: Symmetrical Anesthesia Assess/Plan ASA Score: 3 (IDDM, CRI, hypothyroidism, >50pkyr smoker) Modified Demetria Scale for Level of Consciousness: Cooperative, oriented, and tranquil Anesthetic Plan: General (r/b/a discussed, questions answered, consent obtained) Monitoring Plan: Standard Monitors Recovery Plan: PACU
--- NOTE | 2016-12-01 11:56 | History & Physical Report ---
Date of Encounter: 12/01/16 Time of Encounter: 11:54 24 Hour HP Update - Instructions Instructions: If the History and Physical is less than 30 days old and was completed prior to A.M. admission and or procedure and has NOT been updated on calendar day of procedure please complete this update prior to performing procedure. - Update Patient reports changes in Medical Condition: No Changes in examination, assessment, or condition: No Changes in Medication: No Surgery Remains Indicated: Yes Consent for Planned Operative Procedure(s) Verified: Yes - Pre-Operative Checklist Prophylactic Antibiotic Ordered: Yes Home Medications Include Beta Marina: No Is VTE Prophylaxis Indicated?: Yes
[2016-12-01] MEDS ORDERED: *HR* Morphine 10 MG/ML VIAL ONE (12:58)
[2016-12-01] MEDS ORDERED: *HR* Morphine 2 MG/ML SYRINGE IVP PRN (14:23)
[2016-12-01] MEDS ORDERED: Albuterol 2.5 MG/3 ML NEBULIZER IH PRN (14:23)
[2016-12-01] MEDS ORDERED: *HR* Labetalol 100 MG/20 ML MDV IVP PRN (14:23)
[2016-12-01] MEDS ORDERED: Ondansetron 4 MG/2 ML VIAL IVP ONE (14:23)
[2016-12-01] MEDS ORDERED: Acetaminophen IV 1,000 MG/100 ML INFUS..BTL IVPB ONE (14:23)
--- NOTE | 2016-12-01 14:57 | Operative Note ---
Date of procedure: 12/01/16 Pre-op diagnosis: acute cholecystitis Post-op diagnosis: same Procedure: Laparoscopic converted to open cholecystectomy Complications: none immediate Anesthesia: GETA, local Local Anesthetics: 0.5% Sensorcaine HCL SubQ (cc) (30) Surgeon: Jessica Walden Security Patrol Driver Other: Mo Richards Estimated blood loss (cc): 200 Specimen: gallbladder and contents Condition: stable Disposition: PACU Procedure in Detail: The patient was brought into the operating suite and placed supine on the operating table. Sign-in was performed and everyone was in agreement. Anesthesia was induced and patient was endotracheally intubated by anesthesia without incident and they also placed an OG tube. The abdomen was prepped and draped in the usual sterile fashion. A timeout was performed again everyone was in agreement. A supraumbilical incision was made through the skin into the subcutaneous tissue with an 11 blade. Towel clamps were placed on either side of the umbilicus for retraction. S retractors were used to dissect down to the anterior abdominal wall linea alba fascia. A Veress needle was placed through this incision and a water drop test confirmed placement and the abdomen was insufflated. The abdomen was entered with a 5 mm 0 degree laparoscope on a 5 mm X-farhan trocar. The area and entry was visualized was no bleeding and no apparent bowel injury. A 5 mm subxiphoid port was placed under direct visualization after first incising the skin with an 11 blade. A right upper quadrant subcostal position midclavicular line 5 mm port was placed under direct visualization after first incising skin with 11 blade. The laparoscope was placed in this and we exchanged the supraumbilical port for a 12 mm port under direct visualization. The last 5 mm port was placed in the right upper quadrant subcostal position anterior axillary line after first incising the skin with an 11 blade. The patient was placed in steep reverse Trendelenburg left side down position. The dome of the gallbladder was grasped and retracted cephalad. Omental adhesions to the body and infundibulum of the gallbladder were taken down bluntly with the [place]. Small bowel was adherent to the dome of the gallbladder and it was taken down with sharp scissors. The infundibulum was grasped and retracted laterally. Attempts to dissect out the cystic duct and artery were performed with gentle blunt dissection with the maryland, kittner and suction. The tissue overlying the calot triangle was very fibrotic and firm and after an appropriate time frame no structures were obvious and decision was made to convert to open. A kocker incision in RUQ was made with a 15 blade through the skin into the subcutaneous tissue. Dissection through the subcutaneous tissue was done with the bovie. The anterior rectus fascia was opened with the bovie and the rectus muscle split with the bovie over a large Carlie. The oblique muscles medially were transected with the bovie. A bookwalter was placed for exposure. The dome of the gallbladder was grasped with a Kocker for retraction. The gallbladder was taken down off the liver with the bovie in a dome down fashion. There was much difficulty in identifying the cystic artery and cystic duct. The gallbladder was opened along the inferior aspect with the Bovie, all stones were removed. A Koker was placed on either side of the opened gallbladder for retraction. A deBakey was used to identify the cystic duct. Using a right angle and gentle dissection with Kittners the cystic duct was dissected free. The cystic artery was identified and dissected with a right angle. Two 5 mm hemoclips were placed proximally across the cystic artery and it was transected with metzenbaum scissors. Two 10 mm hemoclips were placed distally on the cystic duct and it was transected with metzenbaum scissors. The gallbladder was removed from the fibrous connective tissue to the liver bed with the bovie. Cystic plate was copiously irrigated with sterile saline. A 10 mm ANJEL drain was placed through the right lateral abdominal wall and secured to the skin with a 2-0 silk stitch. A cut piece of surgicel was placed at the gallbladder fossa as was the ANJEL drain. THe posterior obliques and posterior rectus fascia was reapproximated with #1 nonlooped PDS running stitch. THe fascia of the internal oblique was approximated with 0 Vicryl running stitch. The external oblique and anterior rectus fascia was reapproximated with a #1 nonlooped running PDS stitch. The wound was copiously irrigated with sterile saline. The subcutaneous tissue was reapproximated with 3-0 Vicryl interrupted stitches. The skin was closed with mercedes. The supraumbilical incision at the muscle was closed with an 0 Vicryl [id number] stitch. Mercedes were used to close the skin. The left upper quadrant 5 mm port site was closed with mercedes at the skin. Drain sponge was placed at the ANJEL drain site. 4 x 4 gauze and Medipore tape were applied to the koker incision at the previous cholecystostomy tube site. Band-Aids were placed over the supraumbilical and left upper quadrant incision sites. The patient tolerated the procedure well. All lap and instrument counts were correct at the end of the case. The patient was awoken in the operating suite and extubated by anesthesia in the OR. He was taken to PACU in stable condition.
--- NOTE | 2016-12-01 15:21 | Operative Note ---
Date of procedure: 12/01/16 Pre-op diagnosis: acute cholecystitis Post-op diagnosis: same Procedure: Laparoscopic converted to open cholecystectomy Complications: none immediate Anesthesia: GETA, local Local Anesthetics: 0.5% Sensorcaine HCL SubQ (cc) (30) Surgeon: Jessica Walden Telephone Order Dispatcher Other: Mo Richards Estimated blood loss (cc): 200 Specimen: gallbladder and contents Condition: stable Disposition: PACU
[2016-12-01] MEDS ORDERED: Dextrose Gel 15 GM PO PRN ×4 (15:39→16:56)
[2016-12-01] MEDS ORDERED: D5% in Water 1,000 ML IVC PRN ×2 (15:39→16:56)
[2016-12-01] MEDS ORDERED: *HR* Dextrose 50 % in Water (Syg) 50 ML SYRINGE IVP PRN ×2 (15:39→16:56)
--- NOTE | 2016-12-01 16:12 | Anesthesia Evaluation Post Op ---
Date of Encounter: 12/01/16 Time of Encounter: 16:09 - Vital Signs Vital Signs: Vital Signs - Last 8 Hours Temp Pulse Resp BP Pulse Ox 12/01/16 16:02 97.4 F L 83 18 124/58 90 12/01/16 15:51 73 16 119/61 90 12/01/16 15:41 73 16 136/69 91 12/01/16 15:31 98.3 F 79 16 140/79 91 12/01/16 15:21 81 16 145/65 90 12/01/16 15:11 83 16 156/72 94 12/01/16 15:01 96.7 F L 90 18 174/79 96 12/01/16 11:16 98.1 F 76 18 131/89 94 12/01/16 11:03 98.1 F 76 18 131/89 94 12/01/16 10:45 18 94 Intake and Output 12/01/16 12/01/16 12/01/16 07:59 15:59 23:59 Intake Total 600 / 600 100 / 100 Output Total 200 / 200 Balance 400 / 400 100 / 100 Intake: IV Fluids 600 / 600 100 / 100 0.9 % Sodium Chloride 500 500 / 500 ML @ 25 mls/hr IVC .Q20H [facility] Rx#:[id number] Ofirmev 1,000 mg/100 ml 1 100 / 100 ,000 mg In 100 ml @ 400 mls/hr IVPB ONCE ONE Rx#: [id number] Mefoxin 2,000 MG In 100 / 100 Dextrose 5% (Minibag+) 100 ML 100 ML @ 200 mls/ hr IVPB PREOP ONE Rx#: [id number] Output: Estimated Blood Loss 200 / 200 Other: Weight 67.132 kg Blood Glucose* 232 Patient Weight 12/01/16 23:59 Weight 67.132 kg - Lungs Lungs: Clear Ascult./Percussion - Airway Airway: Non-obstructed - Cardiovascular Regular Rate, Baseline Rhythm - Mental Status Mental Status: Alert & Oriented, Answers Appropriately - Pain Pain Scale: 0 Pain Scale used: Numeric (1 - 10) - Nausea Vomiting Nausea Vomiting: Not Present - Hydration Hydration: Tolerates oral liquids - Discharge PostOp Status: Transfer Patient to floor
[2016-12-01] MEDS ORDERED: Insulin LISPRO 300 UNITS/3 ML VIAL SQ SCH ×2 (16:30→21:00)
[2016-12-01] MEDS ORDERED: Ondansetron 4 MG/2 ML VIAL IVP PRN (16:56)
[2016-12-01] MEDS ORDERED: Naloxone 0.4 MG/ML INJ IVP PRN (16:56)
[2016-12-01] MEDS ORDERED: *HR* Metoprolol 5 MG/5 ML VIAL IVP PRN (16:56)
[2016-12-01] MEDS: *HR* HYDROcodone/Acet 5/325 mg TABLET PO PRN ×2 (18:30→23:34)
[2016-12-01] MEDS: 0.9 % Sodium Chloride 1,000 ML IVC SCH (18:37)
[2016-12-01] MEDS: *HR* Morphine 2 MG/ML SYRINGE IVP PRN (19:38)
[2016-12-01] MEDS: Ipratropium/Albuterol Neb 3 ML IH SCH (21:12)
[2016-12-01] MEDS: Insulin LISPRO 300 UNITS/3 ML VIAL SQ SCH (22:16)
[2016-12-01] MEDS: ceFAZolin 2,000 MG in D5% in Water 100 ML IVPB SCH (22:17)
[2016-12-02] MEDS: Ipratropium/Albuterol Neb 3 ML IH SCH ×4 (03:26→21:11)
[2016-12-02] MEDS: *HR* Morphine 2 MG/ML SYRINGE IVP PRN ×5 (03:30→21:02)
[2016-12-02 05:35] LABS: Hematocrit 28.1 % (37.5-50.1); Hemoglobin 9.5 g/dL (12.9-16.9); Mean Corpuscular HGB Conc 33.8 g/dL (31.6-35.5); Mean Corpuscular Hemoglobin 31.7 pg (28.0-33.3); Mean Corpuscular Volume 93.7 fL (83.0-100.0); Mean Platelet Volume 9.4 fL (9.4-12.4); Platelet Count 211 K/mcL (140-400); Red Cell Distribution Width 13.2 % (11.5-14.5); Segmented Neutrophils % 84.1 %
[2016-12-02 05:36] LABS: Basophils % 0.3 %; Immature Granulocytes % 0.5 % (0-4); Lymphocytes # 0.8 K/mcL (0.6-4.6); Lymphocytes % 7.4 %; Monocytes # 0.9 K/mcL (0.0-1.3); Monocytes % 7.7 %; Neutrophils # 9.5 K/mcL (1.6-8.9)
[2016-12-02] MEDS: ceFAZolin 2,000 MG in D5% in Water 100 ML IVPB SCH ×2 (05:41→13:52)
[2016-12-02] MEDS: *HR* HYDROcodone/Acet 5/325 mg TABLET PO PRN (05:41)
[2016-12-02] MEDS: 0.9 % Sodium Chloride 1,000 ML IVC SCH (05:48)
[2016-12-02 05:52] LABS: Alanine Aminotransferase 26 Units/L (0-55); Albumin 2.6 g/dL (3.5-5.0); Albumin/Globulin Ratio 0.9 (1.1-2.2); Alkaline Phosphatase 87 Units/L (38-126); Aspartate Amino Transferase 37 Units/L (5-34); BUN/Creatinine Ratio 10 (6-26); Bilirubin,Direct 0.3 mg/dL (0.0-0.5); Bilirubin,Indirect 0.3 mg/dL (0.0-1.2); Bilirubin,Total 0.6 mg/dL (0.2-1.2); Blood Urea Nitrogen 13 mg/dL (8-26); Calcium 8.2 mg/dL (8.6-10.8); Carbon Dioxide 24 mEq/L (19-29); Chloride 108 mEq/L (98-109); Globulin 2.8 g/dL (2.4-3.5); Glucose 142 mg/dL (70-99); Magnesium 1.2 mg/dL (1.6-2.6); Osmolality,Calculated 289 (280-300); Phosphorous 3.7 mg/dL (2.3-4.7); Potassium 4.3 mEq/L (3.5-4.5); Sodium 138 mEq/L (136-145); Total Protein 5.4 g/dL (6.0-8.3); eGFR For African Americans > 60 (> 60); eGFR For Non-African Americans 54 (> 60)
[2016-12-02] MEDS ORDERED: Magnesium Sulfate 2 GM in D5% in Water 100 ML IVPB ONE (07:55)
[2016-12-02] MEDS ORDERED: *HR* LORazepam 0.5 MG TABLET PO PRN (08:03)
[2016-12-02] MEDS: Insulin LISPRO 300 UNITS/3 ML VIAL SQ SCH ×4 (08:39→20:54)
--- NOTE | 2016-12-02 09:33 | General Surgery Progress Note ---
Date of Encounter: 12/02/16 Time of Encounter: 08:05 - Assessment and Plan (1) Acute cholecystitis Current Visit: No Status: Acute POD #1 Laparoscopic converted to open cholecystectomy with Dr. Walden Diabetic diet Saline lock IV antibiotics- Ancef X 3 post-op doses Supportive care/pain control - incrased morphine and percocet dosing Out of bed to chair with assistance Continue ANJEL drain IS every 1 hour while awake/scheduled aerosols PPI therapy daily Repeat am labs (2) CKD (chronic kidney disease) stage 3, GFR 30-59 ml/min Current Visit: No Status: Chronic Cr- 1.29 Stable Avoid nephrotoxic medications Repeat am labs (3) Squamous cell carcinoma of lung, stage IV Current Visit: No Status: Chronic Qualifiers: Laterality: left Qualified Code(s): C34.92 - Malignant neoplasm of unspecified part of left bronchus or lung (4) COPD (chronic obstructive pulmonary disease) Current Visit: No Status: Chronic Aerosols every 6 hours IS every 1 hour while awake Continue to monitor and adjust treatment as necessary Qualifiers: COPD type: emphysema Emphysema type: panlobular Qualified Code(s): J43.1 - Panlobular emphysema (5) Diabetes mellitus Current Visit: No Status: Chronic Medium sliding scale insulin coverage every ACHS Diabetic diet Continue to monitor and adjust treatment regimen as necessary Qualifiers: Diabetes mellitus type: type 2 Diabetes mellitus complication status: with kidney complications Diabetes mellitus complication detail: with chronic kidney disease Diabetes mellitus residential insulin use: without residential use Chronic kidney disease stage: stage 3 (moderate) Qualified Code(s): E11.22 - Type 2 diabetes mellitus with diabetic chronic kidney disease; N18.3 - Chronic kidney disease, stage 3 (moderate) (6) Hyperlipidemia Current Visit: No Status: Chronic Qualifiers: Hyperlipidemia type: unspecified Qualified Code(s): E78.5 - Hyperlipidemia , unspecified (7) Hypothyroidism Current Visit: No Status: Chronic Continue home dose regimen of levothyroxine Qualifiers: Hypothyroidism type: unspecified Qualified Code(s): E03.9 - Hypothyroidism , unspecified (8) Peripheral neuropathy Current Visit: No Status: Chronic Qualifiers: Peripheral neuropathy type: polyneuropathy, unspecified Qualified Code(s): G62.9 - Polyneuropathy, unspecified (9) Hypomagnesemia Current Visit: Yes Status: Acute Replace Mg per Dr. Walden Repeat am labs (10) DVT prophylaxis Current Visit: No Status: Acute EPCDs to bilateral lower extremities for DVT prophylaxis Out of bed to chair with assistance today Subjective Patient reports: still having pain, tolerating liquids well, voiding w/o difficulty, no flatus, no bowel movement, afebrile, other (Poor appetite. Patient states that his pain is not well controlled.) Narrative: complaining of pain with movement, no nausea, tolerating lots of water Objective Vital Signs - Last 8 Hours Temp Pulse Resp BP Pulse Ox 12/02/16 07:10 99.6 F 82 18 134/69 95 12/02/16 04:00 98.6 F 87 16 134/68 92 Intake and Output 12/01/16 12/02/16 12/02/16 23:59 07:59 15:59 Intake Total 320 / 320 2000 / 2000 Output Total / 20 670 / 670 Balance 300 / 300 1330 / 1330 Intake: IV Fluids 200 / 200 1000 / 1000 0.9 % Sodium Chloride 1, 1000 / 1000 000 ML @ 80 mls/hr IVC . [id number] [facility] Rx#: [id number] Ofirmev 1,000 mg/100 ml 1 100 / 100 ,000 mg In 100 ml @ 400 mls/hr IVPB ONCE ONE Rx#: [id number] Ancef 2,000 MG In 100 / 100 Dextrose 5% 100 ML @ 200 mls/hr IVPB Q8H [facility] Rx#: [id number] Oral 120 / 120 1000 / 1000 Output: Urine 0 / 0 650 / 650 Wound Drainage 20 / 20 20 / 20 Right Lower Abdomen 20 / 20 20 / 20 Other: Meal Dinner Blood Glucose* 195 182 - General physical appearance well developed, well nourished, moderate pain - Eyes PERRL, normal ocular movement - ENT normal mucosa, atraumatic, normocephalic - Neck Neck exam: trachea midline - Respiratory normal respiratory effort, clear to auscultation, other (diminished bibasilar bases) - Cardiovascular Cardiovascular exam: Present: RRR - Abdomen Abdomen: Present: bowel sounds present (minimal, hypoactive), soft, tender ( expected post-operative tenderness), wound (ANJEL drain to bulb suction with mostly sanguineous drainage noted (approximately 30ml noted since midnight)) - Incision Incision: Present: clean and dry, intact - Integumentary no rash, no growths - Neurologic CN 2-12 grossly intact - Musculoskeletal normal posture - Psychiatric oriented to time, oriented to person, oriented to place, speech is normal, memory intact - Labs 12/02/16 05:02 12/02/16 05:02 Diabetes panel 12/02/16 Range/Units 05:02 Sodium 138 (136-145) mEq/L Potassium 4.3 (3.5-4.5) mEq/L Chloride 108 (98-109) mEq/L Carbon Dioxide 24 (19-29) mEq/L BUN 13 (8-26) mg/dL Creatinine 1.29 H (0.72-1.25) mg/dL Glucose 142 H (70-99) mg/dL Calcium 8.2 L (8.6-10.8) mg/dL AST 37 H (5-34) Units/L ALT 26 (0-55) Units/L Alkaline Phosphatase 87 (38-126) Units/L Albumin 2.6 L (3.5-5.0) g/dL Calcium panel 12/02/16 Range/Units 05:02 Calcium 8.2 L (8.6-10.8) mg/dL Phosphorus 3.7 (2.3-4.7) mg/dL Albumin 2.6 L (3.5-5.0) g/dL Pituitary panel 12/02/16 Range/Units 05:02 Sodium 138 (136-145) mEq/L Potassium 4.3 (3.5-4.5) mEq/L Chloride 108 (98-109) mEq/L Carbon Dioxide 24 (19-29) mEq/L BUN 13 (8-26) mg/dL Creatinine 1.29 H (0.72-1.25) mg/dL Glucose 142 H (70-99) mg/dL Calcium 8.2 L (8.6-10.8) mg/dL Adrenal panel 12/02/16 Range/Units 05:02 Sodium 138 (136-145) mEq/L Potassium 4.3 (3.5-4.5) mEq/L Chloride 108 (98-109) mEq/L Carbon Dioxide 24 (19-29) mEq/L BUN 13 (8-26) mg/dL Creatinine 1.29 H (0.72-1.25) mg/dL Glucose 142 H (70-99) mg/dL Calcium 8.2 L (8.6-10.8) mg/dL Total Bilirubin 0.6 (0.2-1.2) mg/dL AST 37 H (5-34) Units/L ALT 26 (0-55) Units/L Alkaline Phosphatase 87 (38-126) Units/L Albumin 2.6 L (3.5-5.0) g/dL - VTE Documentation of Mechanical Device: Intermittent pneumatic compression device Consult Discharge Plan - Plan Referrals: Omari Tomas MD [Primary Care Provider] - Britt Avery CNP [Advanced Practice Nurse] - 12/15/16 10:45 am - Attending Attestation I examined this patient and my medical decision-making was reviewed with the [employer]/PA/Advanced Practice Nurse/Resident Physician. I agree with the documented findings, disposition and treatment plan as described except to the extent set forth below. I examined this patient and my medical decision-making was reviewed with the [employer] MAKER/PA/Advanced Practice Nurse/Resident Physician. I agree with the documented findings, disposition and treatment plan as described except to the extent set forth below.
[2016-12-02] MEDS: *HR* OxyCODONE/APAP 10/325 TABLET PO PRN (16:00)
[2016-12-03] MEDS: *HR* Morphine 2 MG/ML SYRINGE IVP PRN ×3 (00:34→20:02)
[2016-12-03] MEDS: Ipratropium/Albuterol Neb 3 ML IH SCH ×4 (04:08→22:00)
[2016-12-03] MEDS: *HR* OxyCODONE/APAP 10/325 TABLET PO PRN ×2 (05:36→09:38)
[2016-12-03 06:31] LABS: Basophils # 0.1 K/mcL (0.0-0.2); Basophils % 0.5 %; Eosinophils % 0.1 %; Hematocrit 26.5 % (37.5-50.1); Hemoglobin 8.6 g/dL (12.9-16.9); Lymphocytes # 0.9 K/mcL (0.6-4.6); Lymphocytes % 8.4 %; Mean Corpuscular HGB Conc 32.5 g/dL (31.6-35.5); Mean Corpuscular Hemoglobin 30.9 pg (28.0-33.3); Mean Corpuscular Volume 95.3 fL (83.0-100.0); Mean Platelet Volume 9.4 fL (9.4-12.4); Monocytes % 9.1 %; Neutrophils # 8.8 K/mcL (1.6-8.9); Platelet Count 189 K/mcL (140-400); Red Blood Count 2.78 M/mcL (4.19-5.50); Red Cell Distribution Width 13.2 % (11.5-14.5); Segmented Neutrophils % 80.9 %
[2016-12-03 06:44] LABS: Calcium 8.6 mg/dL (8.6-10.8); Magnesium 1.3 mg/dL (1.6-2.6); Phosphorous 2.9 mg/dL (2.3-4.7); Potassium 4.1 mEq/L (3.5-4.5)
[2016-12-03] MEDS ORDERED: Magnesium Sulfate 2 GM in D5% in Water 100 ML IVPB ONE (08:05)
--- NOTE | 2016-12-03 09:06 | General Surgery Progress Note ---
Date of Encounter: 12/03/16 Time of Encounter: 17:10 - Assessment and Plan (1) Acute cholecystitis Current Visit: No Status: Acute POD #2 Laparoscopic converted to open cholecystectomy with Dr. Walden H/H decreased to 8.6/26.5 today from 9.5/28.1 5/9 Patient reports upper abdominal muscular pain Not passing gas, no BM ANJEL drain to bulb suction with mostly sanguinous drainage, 5/9 output 20mL, 5/10 output currently 30mL 5/9 UOP 650mL Discussed with patient that he needs to be getting up and eating so that his bowels will start moving and he can work towards going home. Patient states that he can tolerate ensure and would like to get up. He states he will work at it so that he can work towards going home. Plan: Colace 100mg BID Ensure TIDWM Activity: out of bed for all meals. Diabetic diet Saline lock Supportive care/pain control - increased morphine and percocet dosing Out of bed to chair with assistance Continue ANJEL drain IS every 1 hour while awake/scheduled aerosols PPI therapy daily Repeat am labs (2) CKD (chronic kidney disease) stage 3, GFR 30-59 ml/min Current Visit: No Status: Chronic SCr 1.52>1.29 Stable at patient baseline Avoid nephrotoxic medications Repeat am labs (3) COPD (chronic obstructive pulmonary disease) Current Visit: No Status: Chronic aggressive IS and scheduled aerosols Qualifiers: COPD type: emphysema Emphysema type: panlobular Qualified Code(s): J43.1 - Panlobular emphysema (4) Diabetes mellitus Current Visit: No Status: Chronic Glucose ranging 130's-170's Plan: Medium sliding scale insulin coverage every ACHS Diabetic diet Accuchecks ACHS Adjust treatment regimen as necessary Qualifiers: Diabetes mellitus type: type 2 Diabetes mellitus complication status: with kidney complications Diabetes mellitus complication detail: with chronic kidney disease Diabetes mellitus exterminator insulin use: without exterminator use Chronic kidney disease stage: stage 3 (moderate) Qualified Code(s): E11.22 - Type 2 diabetes mellitus with diabetic chronic kidney disease; N18.3 - Chronic kidney disease, stage 3 (moderate) (5) Hypothyroidism Current Visit: No Status: Chronic Continue home dose regimen of levothyroxine Qualifiers: Hypothyroidism type: unspecified Qualified Code(s): E03.9 - Hypothyroidism , unspecified (6) Peripheral neuropathy Current Visit: No Status: Chronic Qualifiers: Peripheral neuropathy type: polyneuropathy, unspecified Qualified Code(s): G62.9 - Polyneuropathy, unspecified (7) Squamous cell carcinoma of lung, stage IV Current Visit: No Status: Chronic Qualifiers: Laterality: left Qualified Code(s): C34.92 - Malignant neoplasm of unspecified part of left bronchus or lung (8) Hypomagnesemia Current Visit: Yes Status: Acute 5/10 Mg 1.[address] Walden Repeat am labs (9) DVT prophylaxis Current Visit: No Status: Acute EPCDs to bilateral lower extremities for DVT prophylaxis Out of bed to chair with assistance Subjective Patient reports: still having pain, no bowel movement Narrative: Patient seen and examined. He reports that he has been in pain since 399 and was not able to sleep well. He reports upper abdominal pain that feel muscular and stretches across his upper abdomen. He denies having a bowel movement or passing gas. States no appetite, having pain but states not taking pain medication. Nurse states he has taken po and iv pain meds throughout the day. He states he has nausea when he thinks about food but isnt taking the zofran. He was out of bed for lunch. Tolerating clears Objective Vital Signs - Last 8 Hours Temp Pulse Resp BP Pulse Ox 12/03/16 07:28 98.4 F 92 18 110/63 94 12/03/16 04:08 18 95 12/03/16 03:39 98.4 F 93 16 118/72 94 12/03/16 01:02 100.6 F H 93 14 123/68 93 Intake and Output 12/02/16 12/03/16 12/03/16 23:59 07:59 15:59 Intake Total 1000 / 1000 Output Total 0 / 0 680 / 680 Balance 0 / 0 320 / 320 Intake: Oral 1000 / 1000 Output: Urine 650 / 650 Wound Drainage 0 / 0 30 / 30 Right Lower Abdomen 0 / 0 30 / 30 Other: Meal Dinner Percent of Meal Consumed 0% Blood Glucose* 137 177 - General physical appearance well developed, well nourished, no distress, moderate pain - Eyes PERRL, normal ocular movement - ENT normal mucosa, atraumatic, normocephalic - Neck Neck exam: no masses, trachea midline - Respiratory normal expansion, normal respiratory effort, clear to percussion, clear to auscultation - Cardiovascular Cardiovascular exam: Present: RRR, no murmurs/rubs/gallops - Abdomen Abdomen: Present: bowel sounds present, soft, tender (appropriate post=op tenderness) Abdominal Tenderness: epigastic, RUQ, LUQ Additional Comments: ANJEL drain in right abdomen with sanguinous drainage - Incision Incision: Present: clean and dry - Integumentary no rash, no abnormal pigmentation - Neurologic CN 2-12 grossly intact - Musculoskeletal normal posture - Psychiatric oriented to time, oriented to person, oriented to place, speech is normal, memory intact - Labs 12/04/16 04:30 12/04/16 04:30 Diabetes panel 12/03/16 Range/Units 05:49 Sodium 136 (136-145) mEq/L Potassium 4.1 (3.5-4.5) mEq/L Chloride 103 (98-109) mEq/L Carbon Dioxide 24 (19-29) mEq/L BUN 15 (8-26) mg/dL Creatinine 1.52 H (0.72-1.25) mg/dL Glucose 178 H (70-99) mg/dL Calcium 8.6 (8.6-10.8) mg/dL Calcium panel 12/03/16 Range/Units 05:49 Calcium 8.6 (8.6-10.8) mg/dL Phosphorus 2.9 (2.3-4.7) mg/dL Pituitary panel 12/03/16 Range/Units 05:49 Sodium 136 (136-145) mEq/L Potassium 4.1 (3.5-4.5) mEq/L Chloride 103 (98-109) mEq/L Carbon Dioxide 24 (19-29) mEq/L BUN 15 (8-26) mg/dL Creatinine 1.52 H (0.72-1.25) mg/dL Glucose 178 H (70-99) mg/dL Calcium 8.6 (8.6-10.8) mg/dL Adrenal panel 12/03/16 Range/Units 05:49 Sodium 136 (136-145) mEq/L Potassium 4.1 (3.5-4.5) mEq/L Chloride 103 (98-109) mEq/L Carbon Dioxide 24 (19-29) mEq/L BUN 15 (8-26) mg/dL Creatinine 1.52 H (0.72-1.25) mg/dL Glucose 178 H (70-99) mg/dL Calcium 8.6 (8.6-10.8) mg/dL - VTE Documentation of Mechanical Device: Intermittent pneumatic compression device Consult Discharge Plan - Plan Referrals: Omari Tomas MD [Primary Care Provider] - Britt Avery CNP [Advanced Practice Nurse] - 12/15/16 10:45 am
[2016-12-03] MEDS: Insulin LISPRO 300 UNITS/3 ML VIAL SQ SCH ×4 (09:38→20:01)
[2016-12-03] MEDS: 0.9 % Sodium Chloride 1,000 ML IVC SCH (18:51)
[2016-12-04] MEDS: *HR* Morphine 2 MG/ML SYRINGE IVP PRN ×2 (00:21→20:55)
[2016-12-04] MEDS: Ipratropium/Albuterol Neb 3 ML IH SCH ×3 (04:10→16:19)
[2016-12-04 05:18] LABS: Hematocrit 24.5 % (37.5-50.1); Hemoglobin 8.2 g/dL (12.9-16.9); Mean Corpuscular HGB Conc 33.5 g/dL (31.6-35.5); Mean Corpuscular Volume 95.7 fL (83.0-100.0); Mean Platelet Volume 9.6 fL (9.4-12.4); Platelet Count 178 K/mcL (140-400); Red Blood Count 2.56 M/mcL (4.19-5.50); Red Cell Distribution Width 13.2 % (11.5-14.5)
[2016-12-04 05:31] LABS: BUN/Creatinine Ratio 10 (6-26); Blood Urea Nitrogen 13 mg/dL (8-26); Calcium 8.7 mg/dL (8.6-10.8); Carbon Dioxide 24 mEq/L (19-29); Chloride 100 mEq/L (98-109); Glucose 146 mg/dL (70-99); Magnesium 1.6 mg/dL (1.6-2.6); Osmolality,Calculated 281 (280-300); Phosphorous 2.8 mg/dL (2.3-4.7); Potassium 3.5 mEq/L (3.5-4.5); Sodium 134 mEq/L (136-145); eGFR For African Americans > 60 (> 60); eGFR For Non-African Americans 50 (> 60)
[2016-12-04 06:03] LABS: Eosinophils # 0.3 K/mcL (0.0-0.6); Lymphocytes # 0.8 K/mcL (0.6-4.6); Monocytes # 0.8 K/mcL (0.0-1.3); Platelet Estimate Normal (Normal); Reactive Lymphocytes Present (Not Present); Toxic Granulation Present (Not Present)
[2016-12-04] MEDS: *HR* OxyCODONE/APAP 10/325 TABLET PO PRN (08:45)
[2016-12-04] MEDS: Insulin LISPRO 300 UNITS/3 ML VIAL SQ SCH ×4 (08:51→20:31)
--- NOTE | 2016-12-04 10:17 | General Surgery Progress Note ---
Date of Encounter: 12/04/16 Time of Encounter: 15:15 - Assessment and Plan (1) Acute cholecystitis Current Visit: No Status: Acute POD #3 Laparoscopic converted to open cholecystectomy with Dr. Walden H/H stable today 8.2/24.5 Patient reports upper abdominal muscular pain that is mild, improved from yesterday. He notes better pain control Not passing gas, no BM ANJEL drain to bulb suction with serosanguinous drainage, 5/10 output 70mL, 5/11 output currently 90mL 5/10 UOP 650mL The patient reports that he does not have an appetite for most of the food that he is getting. He states that at lunch he was able to eat small amounts of everything, but did not like the food he was given at breakfast. He does enjoy drinking the ensure and has been tolerating that well. He states that he has been up walking and up in the chair. He denies BM or flatus. We discussed again the need to ambulate and eat well to try and move his bowels. He will continue to work on this to work towards going home. He states that it is encouraging that he feels so much better today. Plan: Continue scheduled colace 100mg BID Continue Ensure TIDWM Activity: out of bed for all meals. Diabetic diet Saline lock Supportive care/pain control - increased morphine and percocet dosing Continue ANJEL drain IS every 1 hour while awake/scheduled aerosols PPI therapy daily Repeat am labs (2) CKD (chronic kidney disease) stage 3, GFR 30-59 ml/min Current Visit: No Status: Chronic SCr 1.36<1.52 Stable at patient baseline Avoid nephrotoxic medications (3) COPD (chronic obstructive pulmonary disease) Current Visit: No Status: Chronic Qualifiers: COPD type: emphysema Emphysema type: panlobular Qualified Code(s): J43.1 - Panlobular emphysema (4) Diabetes mellitus Current Visit: No Status: Chronic Glucose ranging 180's-200's Plan: Medium sliding scale insulin coverage every ACHS Diabetic diet Accuchecks ACHS Adjust treatment regimen as necessary Qualifiers: Diabetes mellitus type: type 2 Diabetes mellitus complication status: with kidney complications Diabetes mellitus complication detail: with chronic kidney disease Diabetes mellitus skilled nursing insulin use: without skilled nursing use Chronic kidney disease stage: stage 3 (moderate) Qualified Code(s): E11.22 - Type 2 diabetes mellitus with diabetic chronic kidney disease; N18.3 - Chronic kidney disease, stage 3 (moderate) (5) Hypothyroidism Current Visit: No Status: Chronic Continue home dose regimen of levothyroxine Qualifiers: Hypothyroidism type: unspecified Qualified Code(s): E03.9 - Hypothyroidism , unspecified (6) Peripheral neuropathy Current Visit: No Status: Chronic Qualifiers: Peripheral neuropathy type: polyneuropathy, unspecified Qualified Code(s): G62.9 - Polyneuropathy, unspecified (7) Squamous cell carcinoma of lung, stage IV Current Visit: No Status: Chronic Qualifiers: Laterality: left Qualified Code(s): C34.92 - Malignant neoplasm of unspecified part of left bronchus or lung (8) Hypomagnesemia Current Visit: Yes Status: Acute 5/11 Mg 1.[address] Walden Repeat am labs (9) DVT prophylaxis Current Visit: No Status: Acute EPCDs to bilateral lower extremities for DVT prophylaxis Out of bed to chair with assistance Subjective Patient reports: feels better, pain is less, tolerating a regular diet, no flatus, no bowel movement Narrative: The patient was seen and examined. He states that he is having much better pain control today. He has been tolerating the ensure. He states that he does not like the food that they are giving him, but he does like the ensure. He has been up walking, but has not yet passed gas or stool. Objective Vital Signs - Last 8 Hours Temp Pulse Resp BP Pulse Ox 12/04/16 07:17 98.7 F 91 16 130/69 95 12/04/16 04:22 98.7 F 88 14 126/67 96 12/04/16 04:10 18 96 Intake and Output 12/03/16 12/04/16 12/04/16 23:59 07:59 15:59 Intake Total 0 / 0 0 / 0 240 / 240 Output Total 40 / 40 455 / 455 Balance -40 / -40 -455 / -455 240 / 240 Intake: Oral 0 / 0 0 / 0 240 / 240 Output: Urine 0 / 0 375 / 375 Wound Drainage 40 / 40 80 / 80 Right Lower Abdomen 40 / 40 80 / 80 Other: Meal Breakfast Percent of Meal Consumed 25% Weight 71.412 kg Blood Glucose* 231 183 Patient Weight 12/04/16 23:59 Weight 71.412 kg - General physical appearance well developed, well nourished, no distress, moderate pain - Eyes PERRL, normal ocular movement - ENT normal mucosa, atraumatic, normocephalic - Neck Neck exam: no masses, trachea midline - Respiratory normal expansion, normal respiratory effort, clear to auscultation - Cardiovascular Cardiovascular exam: Present: RRR, no murmurs/rubs/gallops - Abdomen Abdomen: Present: bowel sounds present, soft, distended, tender (appropriate post-op tenderness) Abdominal Tenderness: diffusely Additional Comments: ANJEL drain in the right abdomen with serosanguinous drainage - Incision Incision: Present: clean and dry, intact. Absent: draining, red, erythema - Integumentary no rash, no abnormal pigmentation - Neurologic CN 2-12 grossly intact, normal sensation - Musculoskeletal normal posture - Psychiatric oriented to time, oriented to person, oriented to place, speech is normal, memory intact - Labs 12/04/16 04:30 12/04/16 04:30 Diabetes panel 12/04/16 Range/Units 04:30 Sodium 134 L (136-145) mEq/L Potassium 3.5 (3.5-4.5) mEq/L Chloride 100 (98-109) mEq/L Carbon Dioxide 24 (19-29) mEq/L BUN 13 (8-26) mg/dL Creatinine 1.36 H (0.72-1.25) mg/dL Glucose 146 H (70-99) mg/dL Calcium 8.7 (8.6-10.8) mg/dL Calcium panel 12/04/16 Range/Units 04:30 Calcium 8.7 (8.6-10.8) mg/dL Phosphorus 2.8 (2.3-4.7) mg/dL Pituitary panel 12/04/16 Range/Units 04:30 Sodium 134 L (136-145) mEq/L Potassium 3.5 (3.5-4.5) mEq/L Chloride 100 (98-109) mEq/L Carbon Dioxide 24 (19-29) mEq/L BUN 13 (8-26) mg/dL Creatinine 1.36 H (0.72-1.25) mg/dL Glucose 146 H (70-99) mg/dL Calcium 8.7 (8.6-10.8) mg/dL Adrenal panel 12/04/16 Range/Units 04:30 Sodium 134 L (136-145) mEq/L Potassium 3.5 (3.5-4.5) mEq/L Chloride 100 (98-109) mEq/L Carbon Dioxide 24 (19-29) mEq/L BUN 13 (8-26) mg/dL Creatinine 1.36 H (0.72-1.25) mg/dL Glucose 146 H (70-99) mg/dL Calcium 8.7 (8.6-10.8) mg/dL Vital Signs Temp Pulse Resp BP Pulse Ox 12/04/16 13:10 98.5 F 97 15 107/58 93 12/04/16 10:56 97.6 F 92 18 110/64 93 12/04/16 09:38 24 97 12/04/16 07:17 98.7 F 91 16 130/69 95 12/04/16 04:22 98.7 F 88 14 126/67 96 12/04/16 04:10 18 96 12/03/16 23:02 98.9 F 95 14 123/69 96 12/03/16 22:02 16 93 12/03/16 20:50 98 94 12/03/16 19:16 98.3 F 123 14 156/81 92 12/03/16 16:18 90 Intake and Output 12/03/16 12/04/16 12/04/16 23:59 07:59 15:59 Intake Total 0 / 0 0 / 0 1480 / 1480 Output Total 40 / 40 455 / 455 235 / 235 Balance -40 / -40 -455 / -455 1245 / 1245 Intake: IV Fluids 1000 / 1000 0.9 % Sodium Chloride 1, 1000 / 1000 000 ML @ 60 mls/hr IVC . [id number] [facility] Rx#: [id number] Oral 0 / 0 0 / 0 480 / 480 Output: Urine 0 / 0 375 / 375 225 / 225 Wound Drainage 40 / 40 80 / 80 10 / 10 Right Lower Abdomen 40 / 40 80 / 80 10 10 Other: Meal Lunch Percent of Meal Consumed 5% # Voids 1 Weight 71.412 kg Blood Glucose* 231 183 207 Patient Weight 12/04/16 23:59 Weight 71.412 kg - VTE Documentation of Mechanical Device: Intermittent pneumatic compression device Consult Discharge Plan - Plan Referrals: Omari Tomas MD [Primary Care Provider] - Gena,Britt A, BOWLING OR SKATING FRONT DESK CLERK [Advanced Practice Nurse] - 12/15/16 10:45 am - Attending Attestation I examined this patient and my medical decision-making was reviewed with the POUNCING MACHINE OPERATOR/PA/Advanced Practice Nurse/Resident Physician. I agree with the documented findings, disposition and treatment plan as described except to the extent set forth below.
[2016-12-04] MEDS: 0.9 % Sodium Chloride 1,000 ML IVC SCH (12:08)
[2016-12-05] MEDS: Ipratropium/Albuterol Neb 3 ML IH SCH ×3 (00:22→11:07)
[2016-12-05] MEDS: *HR* OxyCODONE/APAP 10/325 TABLET PO PRN ×2 (03:14→08:11)
[2016-12-05 03:31] LABS: Hematocrit 23.3 % (37.5-50.1); Hemoglobin 7.8 g/dL (12.9-16.9); Mean Corpuscular HGB Conc 33.5 g/dL (31.6-35.5); Mean Corpuscular Hemoglobin 31.1 pg (28.0-33.3); Mean Corpuscular Volume 92.8 fL (83.0-100.0); Mean Platelet Volume 9.2 fL (9.4-12.4); Platelet Count 176 K/mcL (140-400); Red Blood Count 2.51 M/mcL (4.19-5.50); Red Cell Distribution Width 12.8 % (11.5-14.5)
[2016-12-05 03:41] LABS: BUN/Creatinine Ratio 9 (6-26); Blood Urea Nitrogen 11 mg/dL (8-26); Calcium 8.8 mg/dL (8.6-10.8); Carbon Dioxide 24 mEq/L (19-29); Chloride 101 mEq/L (98-109); Glucose 152 mg/dL (70-99); Magnesium 1.4 mg/dL (1.6-2.6); Osmolality,Calculated 282 (280-300); Phosphorous 2.8 mg/dL (2.3-4.7); Potassium 3.8 mEq/L (3.5-4.5); Sodium 135 mEq/L (136-145); eGFR For African Americans > 60 (> 60); eGFR For Non-African Americans 58 (> 60)
[2016-12-05] MEDS: Insulin LISPRO 300 UNITS/3 ML VIAL SQ SCH ×2 (08:05→11:44)
[2016-12-05] MEDS ORDERED: Magnesium Oxide 400 MG TABLET PO SCH (09:00)
--- NOTE | 2016-12-05 11:02 | Discharge Summary ---
Date of Encounter: 12/05/16 Time of Encounter: 11:00 - Discharge Diagnosis (1) Acute cholecystitis Priority: Primary Status: Acute (2) CKD (chronic kidney disease) stage 3, GFR 30-59 ml/min Priority: Secondary Status: Chronic (3) COPD (chronic obstructive pulmonary disease) Priority: Secondary Status: Chronic (4) Diabetes mellitus Priority: Secondary Status: Chronic Qualifiers: Diabetes mellitus type: type 2 Diabetes mellitus complication status: with kidney complications Diabetes mellitus complication detail: with chronic kidney disease Diabetes mellitus jail insulin use: without jail use Chronic kidney disease stage: stage 3 (moderate) Qualified Code(s): E11.22 - Type 2 diabetes mellitus with diabetic chronic kidney disease; N18.3 - Chronic kidney disease, stage 3 (moderate) (5) Hypothyroidism Priority: Secondary Status: Chronic Qualifiers: Hypothyroidism type: unspecified Qualified Code(s): E03.9 - Hypothyroidism , unspecified (6) Peripheral neuropathy Priority: Secondary Status: Chronic Qualifiers: Peripheral neuropathy type: polyneuropathy, unspecified Qualified Code(s): G62.9 - Polyneuropathy, unspecified (7) Squamous cell carcinoma of lung, stage IV Priority: Secondary Status: Chronic Qualifiers: Laterality: left Qualified Code(s): C34.92 - Malignant neoplasm of unspecified part of left bronchus or lung (8) Hypomagnesemia Priority: Secondary Status: Acute (9) DVT prophylaxis Priority: Primary Status: Acute - Discharge Medications Prescriptions: OxyCODONE/APAP 10/325 [Percocet 10/325 MG] 1 each PO Q4HR PRN #30 tablet PRN Reason: Pain Home Medications: Aspirin 81 mg PO DAILY 03/13/15 [History] Lidocaine/Prilocaine CREAM [Emla] 1 appl TP PRN PRN 03/13/15 [History] Cyanocobalamin (Vitamin B-12) [Vitamin B12] 2,000 mcg PO DAILY 06/27/16 [History ] Insulin ASPART [NovoLOG] 1 - 3 unit SQ TIDWM 10/15/16 [History] metFORMIN [Glucophage] 500 mg PO BIDWM 10/24/16 [History] Levothyroxine [Synthroid] 100 mcg PO 0630 11/05/16 [History] LORazepam [Ativan] 0.5 mg PO Q6H PRN #90 tablet 11/27/16 [Rx] Megestrol Acetate [Megace] 10 ml PO DAILY #300 mls 11/27/16 [Rx] OxyCODONE/APAP 10/325 [Percocet 10/325 MG] 1 each PO Q4HR PRN #30 tablet [Rx] Allergies/Adverse Reactions: Allergies propoxyphene [From Darvon] Allergy (Verified 12/01/16 12:43) See Comments UNKNOWN General Surgery Exam Initial Vital Signs Resp Pulse Ox 18 94 12/01/16 10:45 12/01/16 10:45 - General physical appearance well developed, well nourished, no distress, no pain - Eyes PERRL, normal ocular movement - Neck no masses, trachea midline - Respiratory normal expansion, normal respiratory effort, clear to auscultation - Cardiovascular Cardiovascular exam: Present: RRR, no murmurs/rubs/gallops - Abdomen Abdomen general surgery: Present: bowel sounds present, soft, non tender - Incision Incision: Present: clean and dry - Integumentary Integumentary general surgery: Present: warm and dry, no abnormal pigmentation - Psychiatric Psychiatric general surgery: Present: appropriate, oriented to person, oriented to place, oriented to time, speech is normal, memory intact - Additional Findings ANJEL drain in place in right lower abdomen, serosanguinous drainage Date of admission: 12/01/16 17:44 Primary care physician: Omari Tomas MD Consults: 12/03/16 19:39 Consult to Occupational Therapy [CONS] Routine Comment: Evaluate, develop and implement POC Reason for Consult: weakness Consult to Physical Therapy [CONS] Routine Comment: Evaluate, develop and implement POC Reason for Consult: weakness Discharging clinician: Jessica Walden Anticipated date of discharge: 12/05/16 - Patient Status Disposition: Home, Self-Care Condition: Good Overall status at discharge: patient is progressing back to baseline - Discharge Instructions Follow Up With: Omari Tomas MD [Primary Care Provider] - Britt Avery CNP [Advanced Practice Nurse] - 12/10/16 12:00 pm Additional Instructions: 1. May shower today. No tub bath for 2 weeks. 2. Wash incisions with soap and water and pat dry daily. 3. No lifting more than 20 lbs for [address] when off narcotics for over 24 hours and able to react safely in the car. 5. May climb stairs. ANJEL drain: Wash around drain with soap and water in the shower and pat dry daily. Apply 4 x 4 gauze and tape to secure daily. Empty drain 3 times daily and as needed if full and record amount on drain record. Bring drain record to follow up appointment with Dr. Walden. - Diet and Activity Activity: other (see above instructions) Diet: advance to your usual diet - Hospital Course Hospital course: Mr. Rodriguez is a 81 year old male who underwent a laparoscopic converted to open cholecystectomy for acute cholecystitis on 12/01/[address] Walden. A ANJEL drain remains in place following procedure with serosanguinous drainage. The patient remained stable in the hospital. His pain has now been appropriately controlled , he has had a bowel movement, has tolerated a regular diet with supplemental ensure, and has been ambulating. Post-op care and drain instructions were provided to the patient. He states understanding of and agreement with the plan. He will be discharged in stable condition with follow up in one week. - Time Spent with Patient Total time spent providing and/or coordinating discharge services: Less than 30 minutes Labs on day of discharge: Labs from last 24 hours 12/05/16 12/05/16 12/05/16 07:18 02:52 02:52 WBC 6.3 RBC 2.51 L Hgb 7.8 L Hct 23.3 L MCV 92.8 MCH 31.1 MCHC 33.5 RDW 12.8 Plt Count 176 MPV 9.2 L Sodium 135 L Potassium 3.8 Chloride 101 Carbon Dioxide 24 BUN 11 Creatinine 1.21 Est GFR ( Amer) > 60 Est GFR (Non-Af Amer) 58 L BUN/Creatinine Ratio 9 Glucose 152 H POC Glucose 159 H Calculated Osmolality 282 Calcium 8.8 Phosphorus 2.8 Magnesium 1.4 L 12/04/16 12/04/16 12/04/16 20:28 16:49 10:57 WBC RBC Hgb Hct MCV MCH MCHC RDW Plt Count MPV Sodium Potassium Chloride Carbon Dioxide BUN Creatinine Est GFR ( Amer) Est GFR (Non-Af Amer) BUN/Creatinine Ratio Glucose POC Glucose 178 H 170 H 207 H Calculated Osmolality Calcium Phosphorus Magnesium
[2016-12-05 11:20] VITALS: BP 114/63
== END 2016-12-05 14:05 | disposition home or self-care (01) | DRG 415 ==
LOC: SAMDAY 10:19 → 3ANU 16:36
PROVIDERS: ADMIT Surgery; ATTEND Surgery